=== PATIENT | male | born 1975 | race African-American/Black ===

== ENCOUNTER 2024-02-14 10:47 | Inpatient (IN) ==
--- NOTE | 2024-02-14 10:55 | Emergency Department Note ---
Impression & Plan Shortness of breath, Acute hypoxemic respiratory failure, Rhinovirus infection, Pulmonary embolism, Hypertension ED Provider Note HISTORY OF PRESENT ILLNESS: Patient is a 48-year-old male presenting with shortness of breath and cough. Patient was sent by pulmonary clinic for further workup for pulmonary embolism. Patient has had a chronic cough for the last month. He reportedly was hypoxic with ambulation at pulmonary clinic and Dr. Contreras referred the patient to the emergency department for a perfusion scan, CT scan without contrast of his chest and echocardiogram. Patient reports he has had a nonproductive cough for the last month. He states that sometimes he coughs so hard that he vomits. Denies any fevers. Denies any DVT or PE history. Denies any history of cardiac stents. He is not on any anticoagulation. He states a history of hypertension and did not take his medication this morning. He denies any abdominal pain, nausea or vomiting outside of his posttussive emesis. He denies any chest pain. He reports feeling short of breath intermittently with exertion, but was not complaining of any shortness of breath with his hypoxic episode at the pulmonary clinic. ROS: as above PHYSICAL EXAM: Constitutional: Patient appears in no acute distress. Morbidly obese HENT: Head: Normocephalic and atraumatic. Eyes: EOMI, PERRL Mouth/Throat: Mucous membranes moist. Neck: Trachea midline. Neck supple. Cardiovascular: RRR, No murmurs, rubs or gallops. Intact distal pulses. Pulmonary/Chest: No respiratory distress. Breath sounds clear and equal bilaterally. No wheezes or rales. Abdominal: Abdomen soft, no tenderness, rebound or guarding. Musculoskeletal: No edema, tenderness or deformity noted. Skin: Warm and dry. No rash, erythema, pallor or cyanosis Psychiatric: Appropriate mood and affect for situation. Neurological: Alert and keenly responsive. CN II-XII grossly intact, moving all extremities equally and fully. MDM: - Vitals signs showed hypertension - History obtained via patient. History as above. - Chronic conditions affecting care: DM-2; CKD stage 4; HLD; HTN - Differential diagnoses include, but are not limited to: Congestive heart failure; acute coronary syndrome; COPD/asthma exacerbation; pulmonary edema; pulmonary embolism; pneumonia; pneumothorax; viral syndrome - Order placed for continuous cardiac monitoring. At this time, monitor showed rate of 77 bpm with normal sinus rhythm, per my interpretation. - External medical records reviewed. Pulmonary visit note dated today was reviewed. Patient not had oxygen saturations of 84% with ambulation and 1 L oxygen was applied. Patient's saturations remained hypoxic at 88% or above at rest on the 1 L. - EKG interpreted by myself showed normal sinus rhythm. Rate 65 bpm. QT 374. No acute ischemic changes. - Laboratory workup interpreted by myself showed leukopenia (WBC 3.98); anemia (Hgb 9.1); normal PT/INR; stable electrolytes; CKD (Cr 4.29); normal troponin; elevated BNP (132) - Bilarteral lower extremity US negative for DVT - Viral respiratory panel positive for rhinovirus/enterovirus infection - CT chest wo contrast showed mild diffuse bronchial wall thickening concerning for reactive airway disease or bronchitis. - VBG showed acidosis (pH 7.29) - Patient's saturations did decrease to 86% and he was started on 3 L nasal cannula. - Unfortunately, patient has significant CKD and cannot obtain a CT PE study. Nuclear medicine pulmonary perfusion study was ordered to assess for PE. Study did show intermediate to high probability for PE. - Heparin bolus and drip initiated. - Patient given 10 mg IV hydralazine for blood pressure control. - Discussion was had with trimming caser about patient's case and need for admission - Hospitalist, Dr. Agudelo, consulted for admission - Patient admitted to [facility] service for further evaluation and management. I have personally spent 42 minutes of critical care time in the direct management of this patient. This includes bedside care, interpretation of diagnostic studies, and testing, discussion with consultants, patient, and family members, and other required patient management activities. This 42 minutes is in excess of all separately billable procedures. 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 Ruvalcaba Hyperkalemia Resistant hypertension Diabetes type 2, controlled (Chronic) Surgical History History of arthroscopy of right shoulder Hx of wisdom tooth extraction Family History Mother Breast cancer Grandmother (Maternal) Diabetes Social History Smoking Status: Never smoker Second Hand Exposure: No; Do You Dip or Chew Tobacco: No; Hx Alcohol Use: Yes Alcohol type: hard liquor Hx Substance Use: No Preferred Language: Amharic Communication Ability: Effective Postie Required: No Beliefs That Will Affect Care: None marital status: Current Living Situation: Spouse current occupational status: employed Feels Safe at Home: Yes Assistive Devices: Glasses Allergies Allergies Allergy/AdvReac Type Severity Reaction Status Date / Time Penicillins Allergy Unknown Unknown Verified 02/14/24 14:07 Home Meds Home Medications Medication Instructions Recorded Confirmed carvedilol 25 mg tablet 25 mg PO BID 08/22/23 02/14/24 insulin degludec 100 unit/mL (3 40 unit subcut QPM 08/22/23 02/14/24 mL) subcutaneous pen (Tresiba FlexTouch U-100 insulin) albuterol sulfate 90 mcg/actuation 2 puff inhalation Q6H PRN Wheezing 02/14/24 02/14/24 aerosol inhaler aspirin 81 mg tablet,delayed 81 mg PO DAILY PRN Headache 02/14/24 02/14/24 release calcitriol 0.5 mcg capsule 0.5 mcg PO 3XWK 02/14/24 02/14/24 furosemide 40 mg tablet (Lasix) 80 mg PO QAM 02/14/24 02/14/24 insulin aspart U-100 100 unit/mL 50 unit subcut TIDWMEAL 02/14/24 02/14/24 (3 mL) subcutaneous pen (Novolog FlexPen U-100 Insulin aspart) sildenafil 50 mg tablet 50 mg PO DAILY PRN Erectile 02/14/24 02/14/24 Dysfunction Previous Rx's Medication Instructions Recorded Dexcom G6 Dishtank Operator (blood-glucose #1 ea 07/14/22 meter,continuous) amlodipine 10 mg tablet 10 mg PO QAM #90 tabs 03/14/23 Dexcom G6 Transmitter #1 ea 06/21/23 (blood-glucose transmitter) Dexcom G6 Sensor (blood-glucose #3 ea 07/25/23 sensor) chlorthalidone 25 mg tablet 25 mg PO DAILY #90 tabs 09/20/23 losartan 100 mg tablet 50 mg (1/2 x 100 mg) PO QAM #90 12/26/23 tabs azithromycin 250 mg tablet See Rx Instructions PO .COMPLEX #6 02/14/24 tabs Results & Data (ED) Vital Signs Vital Signs - 24 hr 02/14/24 10:56 02/14/24 11:45 02/14/24 11:47 Temperature 36.7 C Temperature Source Oral Pulse Rate 68 Pulse Rate [Right Finger] 74 Pulse Rate from SpO2 Sensor Pulse Rhythm [Right Finger] Regular Pulse Strength [Right Finger] Normal Respiratory Rate 20 18 Respiratory Effort / Characteristics Non-Labored Spontaneous Respiratory Depth Normal Normal Blood Pressure 228/109 H Blood Pressure [Right Arm] Blood Pressure Mean 148 Blood Pressure Mean [Right Arm] Blood Pressure Position [Right Arm] Pulse Oximetry 94 88 L 94 Oxygen Delivery Method Room Air Room Air Nasal Cannula Oxygen Flow Rate 2 Sepsis Recent Fever Within 48 Hours No Sepsis New/Unexplained Change in Mental Status N/A Sepsis Action Taken by Nursing No Action Required 02/14/24 12:00 02/14/24 12:45 02/14/24 14:00 Temperature Temperature Source Pulse Rate 62 62 Pulse Rate [Right Finger] 57 L Pulse Rate from SpO2 Sensor 65 Pulse Rhythm [Right Finger] Regular Pulse Strength [Right Finger] Normal Respiratory Rate 18 20 Respiratory Effort / Characteristics Non-Labored Respiratory Depth Normal Blood Pressure 188/113 H Blood Pressure [Right Arm] 188/117 H Blood Pressure Mean 138 Blood Pressure Mean [Right Arm] 140 Blood Pressure Position [Right Arm] Sitting Pulse Oximetry 90 97 Oxygen Delivery Method Room Air Nasal Cannula Oxygen Flow Rate 2 Sepsis Recent Fever Within 48 Hours Sepsis New/Unexplained Change in Mental Status Sepsis Action Taken by Nursing 02/14/24 14:54 Temperature Temperature Source Pulse Rate 77 Pulse Rate [Right Finger] Pulse Rate from SpO2 Sensor Pulse Rhythm [Right Finger] Pulse Strength [Right Finger] Respiratory Rate 22 Respiratory Effort / Characteristics Respiratory Depth Blood Pressure 213/129 H Blood Pressure [Right Arm] Blood Pressure Mean 138 Blood Pressure Mean [Right Arm] Blood Pressure Position [Right Arm] Pulse Oximetry 97 Oxygen Delivery Method Nasal Cannula Oxygen Flow Rate 2 Sepsis Recent Fever Within 48 Hours Sepsis New/Unexplained Change in Mental Status Sepsis Action Taken by Nursing Laboratory Data 02/14/24 11:36 02/14/24 11:36 Lab Results 02/14/24 02/14/24 Range/Units 11:36 12:04 WBC 3.98 L (4.8-10.8) K/ul RBC 3.28 L (4.70-6.10) M/uL Hgb 9.1 L (14.0-18.0) g/dl Hct 30.1 L (42.0-52.0) % MCV 91.8 (80.0-100.0) fL MCH 27.7 (25.0-34.0) pg MCHC 30.2 L (32.0-36.0) g/dL RDW Std Deviation 44.1 (36.4-46.3) fL RDW Coeff of [place] 13.3 (11.5-14.5) % Plt Count 171 (130-400) K/uL MPV 11.1 (9.4-12.4) fL Immature Gran % (Auto) 0.3 % Neut % (Auto) 58.4 % Lymph % (Auto) 15.6 % [place] % (Auto) 14.1 % Eos % (Auto) 11.1 % Baso % (Auto) 0.5 % Neut # (Auto) 2.33 (1.40-6.50) K/uL Lymph # (Auto) 0.62 L (1.20-3.40) K/uL [place] # (Auto) 0.56 (0.11-0.59) K/uL Eos # (Auto) 0.44 (0.00-0.50) K/uL Baso # (Auto) 0.02 (0.00-0.20) K/uL Immature Gran # (Auto) 0.01 (0.01-0.20) K/uL PT 10.7 (9.0-12.0) Seconds INR 1.0 (0.9-1.1) VBG pH 7.29 L (7.36-7.41) VBG pCO2 52 H (38-50) mmHg VBG pO2 20 mmHg VBG HCO3 25 mmol/L VBG O2 Saturation < 60.0 % VBG Base Excess -2.3 mEq/L Sodium 139 (136-145) mmol/L Potassium 4.7 (3.5-5.1) mmol/L Chloride 109 H (98-107) mmol/L Carbon Dioxide 25 (21-32) mmol/L Anion Gap 5 (3-11) BUN 48 H (6-23) mg/dl Creatinine 4.29 H (0.6-1.4) mg/dl Est Cr Clr Drug Dosing 33.2 ml/min Est GFR ( Amer) 17.8 ml/min Est GFR (Non-Af Amer) 15.3 ml/min BUN/Creatinine Ratio 11.2 (10-20) Glucose 157 H (70-99(Fasting)) mg/dl Calcium 9.2 (8.6-10.3) mg/dl Magnesium 1.7 (1.7-2.4) mg/dl Total Bilirubin 0.6 (0.2-1.0) mg/dl AST 17 (13-39) U/L ALT 16 (7-52) U/L Alkaline Phosphatase 40 (34-104) U/L Troponin I High Sens 11.9 (0-20) pg/ml B-Natriuretic Peptide 132 H (0-100) pg/ml Total Protein 7.4 (6.0-8.3) gm/dl Albumin 4.1 (3.4-5.0) gm/dl Globulin 3.3 (2.5-4.0) gm/dl Albumin/Globulin Ratio 1.2 (0.9-2) Adenovirus (PCR) Not Detected (NotDetected) B. pertussis DNA (PCR) Not Detected (NotDetected) B.parapertussis DNA PCR Not Detected (NotDetected) C. pneumoniae DNA (PCR) Not Detected (NotDetected) Coronavirus OC43 (PCR) Not Detected (NotDetected) Coronavirus HKU1 (PCR) Not Detected (NotDetected) Coronavirus 229E (PCR) Not Detected (NotDetected) SARS-CoV-2 (PCR) Not Detected (NotDetected) Coronavirus NL63 (PCR) Not Detected (NotDetected) Human Metapneumovir PCR Not Detected (NotDetected) Influenza Type A (PCR) Not Detected (NotDetected) Influenza Type B (PCR) Not Detected (NotDetected) M. pneumoniae (PCR) Not Detected (NotDetected) Parainfluenza 1 (PCR) Not Detected (NotDetected) Parainfluenza 2 (PCR) Not Detected (NotDetected) Parainfluenza 3 (PCR) Not Detected (NotDetected) Parainfluenza 4 (PCR) Not Detected (NotDetected) RSV (PCR) Not Detected (NotDetected) Entero/Rhino (PCR) DETECTED A (NotDetected) Imaging Data Radiologist's Impression: Chest CT 02/14/24 10:52 CT chest diagnostic wo con CT DOSE: 927.79 mGy.cm HISTORY: cough; shortness of breath; hypoxia TECHNIQUE: Multiaxial CT images of the chest were performed without contrast. A dose lowering technique was utilized adhering to the principles of ALARA. COMPARISON: None. FINDINGS: Mild diffuse bronchial wall thickening. Otherwise, the central airways are patent. No pneumothorax. No pleural effusions. No focal lung consolidations to suggest a pneumonia. No evidence for pulmonary edema. No acute fractures. The visualized thyroid gland is unremarkable. Limited views of the upper abdomen demonstrate a normal liver, spleen, and adrenal glands. Partially visualized left perinephric edema. Normal esophagus. The heart is normal in size. No pericardial effusion. Mild coronary artery calcifications are noted. Normal caliber thoracic aorta. No mediastinal or hilar lymphadenopathy. Decreased attenuation within the blood pool which could represent underlying anemia. IMPRESSION: 1. Mild diffuse bronchial wall thickening. This can be seen in the setting of a reactive airways disease or bronchitis. 2. No focal lung consolidations to suggest a pneumonia. 3. Mild coronary artery calcifications. 4. Decreased attenuation within the blood pool which could represent underlying anemia. Recommend correlation with laboratory values. ACT 112: Negative or not required by law. Electronically signed by: Monty Oswald M.D. 02/14/2024 12:01 PM Chest X-Ray 02/14/24 10:53 XR chest 1V portable HISTORY: Dyspnea COMPARISON: Chest 12/16/2023. FINDINGS: There are low lung volumes. No pneumothorax. No pleural effusions. The correct silhouette is top normal in size. This remains unchanged. The lungs are clear. No acute fractures. IMPRESSION: No significant change compared to the prior study. No acute process. ACT 112: Negative or not required by law. Electronically signed by: Monty Oswald M.D. 02/14/2024 11:48 AM Pulmonary Perfusion Imaging 02/14/24 12:11 NM pul perfusion HISTORY: 48 years-old Male chronic cough; hypoxia acute hypoxia COMPARISON: Duplex venous Doppler chest CT studies of same day TECHNIQUE: Nuclear medicine perfusion study was obtained following the intravenous demonstration of 5.2 mCi technetium 99 MAA administered via the left upper extremity. FINDINGS: Large segmental perfusion defects in the superior segment left lower lobe. Additional moderate sized right and small left upper lobe perfusion defects. IMPRESSION: Intermediate to high probability for pulmonary embolus. ACT 112: Negative or not required by law. The above report was generated using voice recognition software. It may contain grammatical, syntax or spelling errors. Electronically signed by: Martin Mccarthy M.D. 02/14/2024 3:12 PM Venous Doppler Study 02/14/24 12:11 BILATERAL LOWER EXTREMITY VENOUS DOPPLER HISTORY: Acute pain and swelling of the lower legs r/o DVT COMPARISON STUDY: None. FINDINGS: Limited study secondary to patient body habitus. There is normal compressibility, flow, and augmentation within the bilateral lower extremity deep venous systems. Subcutaneous edema. IMPRESSION: No DVT within the right or left lower extremity. ACT 112: Negative or not required by law. Electronically signed by: Martin Mccarthy M.D. 02/14/2024 2:31 PM Discharge Plan Visit Data Chief Complaint: Abnormal Labs/Diagnostic Testing Stated Complaint: REF BY DOC ED Provider: Nury Reeves Discharge Problem: Shortness of breath, Acute hypoxemic respiratory failure, Rhinovirus infection, Pulmonary embolism, Hypertension Forms Stand Alone Forms: My [facility] Prescriptions Prescriptions: No Action amlodipine 10 mg tablet 10 mg PO QAM Qty: 90 3RF (DME) Dexcom G6 Transmitter Device See Rx Instructions .Route Qty: 1 3RF Rx Instructions: change every 90 days (DME) Dexcom G6 Sensor Device See Rx Instructions .Route Qty: 3 11RF Rx Instructions: change every 10 days (DME) Dexcom G6 Dishtank Operator Misc See Rx Instructions .Route Qty: 1 0RF Rx Instructions: use to monitor blood sugars continuous daily chlorthalidone 25 mg tablet 25 mg PO DAILY Qty: 90 3RF carvedilol 25 mg tablet 25 mg PO BID insulin degludec [Tresiba FlexTouch U-100] 100 unit/mL (3 mL) insulin pen 40 unit SQ QPM Retacrit 40,000 unit/mL solution 40,000 unit subcut ONCE Qty: 1 0RF losartan 100 mg tablet 50 mg PO QAM Qty: 90 3RF azithromycin 250 mg tablet See Rx Instructions PO .COMPLEX Qty: 6 0RF Rx Instructions: For 250 mg dose pack: take 500 mg today (day 1), then 250 mg for 4 days (days 2-5) PO. As of 02/14/24, pt hasn't started medication yet. sildenafil 50 mg tablet 50 mg PO DAILY PRN (Reason: Erectile Dysfunction) albuterol sulfate 90 mcg/actuation HFA aerosol inhaler 2 puff INHALATION Q6H PRN (Reason: Wheezing) furosemide [Lasix] 40 mg tablet 80 mg PO QAM calcitriol 0.5 mcg capsule 0.5 mcg PO 3XWK Rx Instructions: Mon/Wed/Fri insulin aspart U-100 [Novolog FlexPen U-100 Insulin] 100 unit/mL (3 mL) insulin pen 50 unit subcut TIDWMEAL Rx Instructions: Inject per sliding scale with meals up to TDD of 50 units aspirin 81 mg Tablet,Delayed Release (Dr/Ec) 81 mg PO DAILY PRN (Reason: Headache) Referrals Referrals: Chris Carroll MD [Primary Care Provider] -
--- NOTE | 2024-02-14 11:49 | XRay Report ---
XR chest 1V portable HISTORY: Dyspnea COMPARISON: Chest 12/16/2023. FINDINGS: There are low lung volumes. No pneumothorax. No pleural effusions. The correct silhouette i s top normal in size. This remains unchanged. The lungs are clear. No acute fractures. IMPRESSION: No significant change compared to the prior study. No acute process. ACT 112: Negative or not required by law. Electronically signed by: Monty Oswald M.D. 02/14/2024 11:48 AM
[2024-02-14 11:54] LABS: Basophils # (auto) 0.02 K/uL (0.00-0.20); Basophils % (auto) 0.5 %; Eosinophils # (auto) 0.44 K/uL (0.00-0.50); Eosinophils % (auto) 11.1 %; Hematocrit (blood only) 30.1 % (42.0-52.0); Hemoglobin 9.1 g/dl (14.0-18.0); Immature Granulocytes # (auto) 0.01 K/uL (0.01-0.20); Immature Granulocytes % (auto) 0.3 %; Lymphocytes # (auto) 0.62 K/uL (1.20-3.40); Lymphocytes % (auto) 15.6 %; Mean Corpuscular Hemoglobin 27.7 pg (25.0-34.0); Mean Corpuscular Hgb Conc 30.2 g/dL (32.0-36.0); Mean Corpuscular Volume 91.8 fL (80.0-100.0); Mean Platelet Volume 11.1 fL (9.4-12.4); Monocytes # (auto) 0.56 K/uL (0.11-0.59); Monocytes % (auto) 14.1 %; Neutrophils # (auto) 2.33 K/uL (1.40-6.50); Neutrophils % (auto) 58.4 %; Platelet Count 171 K/uL (130-400); RDW Coefficient of Variation 13.3 % (11.5-14.5); RDW Standard Deviation 44.1 fL (36.4-46.3); Red Blood Count 3.28 M/uL (4.70-6.10); White Blood Count 3.98 K/ul (4.8-10.8)
--- NOTE | 2024-02-14 12:02 | CT Scan Report ---
CT chest diagnostic wo con CT DOSE: 927.79 mGy.cm HISTORY: cough; shortness of breath; hypoxia TECHNIQUE: Multiaxial CT images of the chest were performed without contrast. A dose lowering techni que was utilized adhering to the principles of ALARA. COMPARISON: None. FINDINGS: Mild diffuse bronchial wall thickening. Otherwise, the central airways are patent. No pneum othorax. No pleural effusions. No focal lung consolidations to suggest a pneumonia. No evidence for p ulmonary edema. No acute fractures. The visualized thyroid gland is unremarkable. Limited views of th e upper abdomen demonstrate a normal liver, spleen, and adrenal glands. Partially visualized left per inephric edema. Normal esophagus. The heart is normal in size. No pericardial effusion. Mild coronary artery calcifications are noted. Normal caliber thoracic aorta. No mediastinal or hilar lymphadenopa thy. Decreased attenuation within the blood pool which could represent underlying anemia. IMPRESSION: 1. Mild diffuse bronchial wall thickening. This can be seen in the setting of a reactive airways dise ase or bronchitis. 2. No focal lung consolidations to suggest a pneumonia. 3. Mild coronary artery calcifications. 4. Decreased attenuation within the blood pool which could represent underlying anemia. Recommend cor relation with laboratory values. ACT 112: Negative or not required by law. Electronically signed by: Monty Oswald M.D. 02/14/2024 12:01 PM
[2024-02-14 12:11] LABS: Albumin Globulin Ratio 1.2 (0.9-2); Albumin Level 4.1 gm/dl (3.4-5.0); BUN Creatinine Ratio 11.2 (10-20); Bilirubin,Total 0.6 mg/dl (0.2-1.0); Calcium 9.2 mg/dl (8.6-10.3); Creatinine Clr Calc Pharmacy 33.2 ml/min; Est GFR (African American) 17.8 ml/min; Est GFR (Non-African American) 15.3 ml/min; Globulin 3.3 gm/dl (2.5-4.0); Magnesium 1.7 mg/dl (1.7-2.4); Potassium 4.7 mmol/L (3.5-5.1); Total Protein 7.4 gm/dl (6.0-8.3)
[2024-02-14 12:11] LABS: Base Excess VBG -2.3 mEq/L; HCO3 VBG 25 mmol/L; Oxygen Saturation VBG < 60.0 %; PCO2 VBG 52 mmHg (38-50); PO2 VBG 20 mmHg; pH VBG 7.29 (7.36-7.41)
[2024-02-14 12:17] LABS: Troponin I High Sensitivity 11.9 pg/ml (0-20)
[2024-02-14 12:18] LABS: Prothrombin Time 10.7 Seconds (9.0-12.0)
[2024-02-14 12:38] LABS: Adenovirus PCR Not Detected (NotDetected); Bordetella parapertussis PCR Not Detected (NotDetected); Bordetella pertussis PCR Not Detected (NotDetected); Chlamydia pneumoniae PCR Not Detected (NotDetected); Coronavirus 229E PCR Not Detected (NotDetected); Coronavirus CoV-2 (COVID19)PCR Not Detected (NotDetected); Coronavirus HKU1 PCR Not Detected (NotDetected); Coronavirus NL63 PCR Not Detected (NotDetected); Coronavirus OC43PCR Not Detected (NotDetected); Human Metapneumovirus PCR Not Detected (NotDetected); Influenza A PCR Not Detected (NotDetected); Influenza B PCR Not Detected (NotDetected); Mycoplasma pneumoniae PCR Not Detected (NotDetected); Parainfluenza Virus 1 PCR Not Detected (NotDetected); Parainfluenza Virus 2 PCR Not Detected (NotDetected); Parainfluenza Virus 3 PCR Not Detected (NotDetected); Parainfluenza Virus 4 PCR Not Detected (NotDetected); Respiratory Syncytial VirusPCR Not Detected (NotDetected); Rhinovirus/Enterovirus PCR DETECTED (NotDetected)
--- NOTE | 2024-02-14 14:32 | Ultrasound Report ---
BILATERAL LOWER EXTREMITY VENOUS DOPPLER HISTORY: Acute pain and swelling of the lower legs r/o DVT COMPARISON STUDY: None. FINDINGS: Limited study secondary to patient body habitus. There is normal compressibility, flow, and augmentation within the bilateral lower extremity deep venous systems. Subcutaneous edema. IMPRESSION: No DVT within the right or left lower extremity. ACT 112: Negative or not required by law. Electronically signed by: Martin Mccarthy M.D. 02/14/2024 2:31 PM
--- NOTE | 2024-02-14 15:14 | Nuclear Medicine Report ---
NM pul perfusion HISTORY: 48 years-old Male chronic cough; hypoxia acute hypoxia COMPARISON: Duplex venous Doppler chest CT studies of same day TECHNIQUE: Nuclear medicine perfusion study was obtained following the intravenous demonstration of 5 .2 mCi technetium 99 MAA administered via the left upper extremity. FINDINGS: Large segmental perfusion defects in the superior segment left lower lobe. Additional moderate sized right and small left upper lobe perfusion defects. IMPRESSION: Intermediate to high probability for pulmonary embolus. ACT 112: Negative or not required by law. The above report was generated using voice recognition software. It may contain grammatical, syntax o r spelling errors. Electronically signed by: Martin Mccarthy M.D. 02/14/2024 3:12 PM
[2024-02-14] MEDS ORDERED: HEPARIN SOD (PORCINE) 1000 UNIT/ML IV ONE (15:31)
[2024-02-14] MEDS: hydrALAZINE HCL 20 MG/ML VIAL IV STA (15:38)
--- NOTE | 2024-02-14 15:52 | History & Physical Report ---
Date of Service February 14, 2024 Assessment & Plan (1) Pulmonary embolism: Plan: Patient sent in by pulmonology on 02/13 after he desaturated while walking to 84% on RA Ongoing cough and intermittent wheezing x 2 months Unable to obtain chest CTA on arrival due to patient's creatinine level Nuclear study for pulmonary perfusion imaging revealed intermediate to high probability for pulmonary embolism in the left lower lobe Heparin IV with bolus started in the ED; platelet count okay at 171 A.m. CBC, BMP, magnesium, PTT (2) Rhinovirus infection: Plan: Rhino/enterovirus (+) on arrival Likely contributing to hypoxia, but not the main cause of it Supportive care Droplet precautions Acetaminophen as needed for pain/fever (3) Acute hypoxemic respiratory failure: Plan: Reported to be 84% on RA with walking prior to arrival; 88% on RA while sitting in the ED Patient is not on supplemental oxygen at baseline Titrate supplemental oxygen to maintain SpO2 >94% Continuous pulse oximetry (4) Stage 5 chronic kidney disease due to type 2 diabetes mellitus: Plan: Creatinine 4.29 on arrival (unclear baseline) Patient follows with [facility] outpatient; not currently on dialysis Recently referred for AV fistula and dialysis modality education session Avoid nephrotoxic agents Avoid NSAIDs Heart healthy, low-salt diet (5) Resistant hypertension: Plan: Patient reports that he did not take his antihypertensives since Sunday 02/11 due [place] airport He reports good compliance with taking his antihypertensives regularly besides these two days Discussed with Dr. Agudelo, and will plan to restart antihypertensives the evening of 02/13 Continue carvedilol, amlodipine, losartan, chlorthalidone, and Lasix as scheduled (6) Anemia of chronic disease: Plan: Chronic; Hgb 9.1 on arrival; likely secondary to kidney function No signs of active bleeding on physical exam on arrival Continue to monitor CBC (7) Type 2 diabetes mellitus: Plan: Last A1c at 5.9% on 08/26/2022 Patient is normally on insulin 40u QPM, but reports he did not take the evening prior to coming in to the hospital Will dose reduce to Lantus 15u BID while inpatient SSI; with target BSG range 110-140mg/dL, CF 20, carb ratio 10 T2DM diet BSG ACHS Adjust regimen as needed AM A1c (8) Asthma: Plan: Patient was prescribed Airsupra (albuterol/budesonide) at his pulmonology appointment on 02/13; non-formulary Per pulm note, spirometry is non-specific, but restrictive; no PFTs Will start on budesonide 1 puff (90mcg/actuation) BID to cover for asthma Albuterol inhaler as needed for wheezing Plan Disposition: Admit to PCU telemetry Full code T2DM, heart healthy, low-salt diet VTE PPx: Heparin IV History of Present Illness Chief Complaint: SOB/dyspnea Primary Care Provider: Chris Carroll MD Jose L is a 48-year-old male with PMH of T2DM, resistant hypertension, CKD stage V secondary to T2DM, and proliferative diabetic retinopathy. He was sent in by pulmonology on 02/13 to rule out blood clot. Patient initially presented to pulmonology for an ongoing nonproductive cough and intermittent wheezing x 2 months. He denies any SOB at rest or with exertion. SOB is not present when he lies flat on his back. Patient reports this nonproductive cough has been intermittent x 2 months and initially went away, but then came back. He recently finished a steroid taper, and has been using his albuterol inhaler as needed for the wheezing, which he reports helps. Patient does not use 7 oxygen at baseline. No CPAP at night. He denies past medical history of DVT/PE. No family history of DVT/PE to his knowledge. No PMH of bleeding disorders, bleeding issues, or GI bleeds. He has never been on a blood thinner before. Patient did not take his regular morning medications today; no recent change in medications. He reports he last took his medicine on Tuesday. He did not take his insulin last night. Patient follows with Dr. Kitchen for nephrology. He denies history of dialysis for his renal function. He reports he is still producing urine. He denies any recent injuries to the chest wall, abdomen, or legs. Patient denies smoking, tobacco use, recent alcohol use within the past week. Patient is hypertensive at 192/111 at time of admission; SpO2 98% on 2L NC. ED course: Heparin IV with bolus Hydralazine 10 mg IV ROS: Patient endorses productive cough x 2 months, intermittent wheezing. Patient denies fever, chills, night-sweats, dizziness, lightheadedness, PATRICIA, chest pressure, chest pain, SOB at rest or with exertion, hemoptysis, pleuritic CP, abdominal pain, N/V/D, changes in urinary/bowel habits, decreased urinary production, redness/swelling in the legs, or numbness/tingling in the arms or legs. Allergies Allergy/AdvReac Type Severity Reaction Status Date / Time Penicillins Allergy Unknown Unknown Verified 02/14/24 14:07 Home Medications Medication Instructions Recorded Confirmed Type Dexcom G6 Displayer Merchandise (blood-glucose #1 ea 07/14/22 02/08/24 Rx meter,continuous) amlodipine 10 mg tablet 10 mg PO QAM #90 tabs 03/14/23 02/14/24 Rx Dexcom G6 Transmitter #1 ea 06/21/23 02/08/24 Rx (blood-glucose transmitter) Dexcom G6 Sensor (blood-glucose #3 ea 07/25/23 02/08/24 Rx sensor) carvedilol 25 mg tablet 25 mg PO BID 08/22/23 02/14/24 History insulin degludec 100 unit/mL (3 40 unit subcut QPM 08/22/23 02/14/24 History mL) subcutaneous pen (Tresiba FlexTouch U-100 insulin) chlorthalidone 25 mg tablet 25 mg PO DAILY #90 tabs 09/20/23 02/14/24 Rx losartan 100 mg tablet 50 mg (1/2 x 100 mg) PO QAM #90 12/26/23 02/14/24 Rx tabs albuterol sulfate 90 mcg/actuation 2 puff inhalation Q6H PRN Wheezing 02/14/24 02/14/24 History aerosol inhaler aspirin 81 mg tablet,delayed 81 mg PO DAILY PRN Headache 02/14/24 02/14/24 History release azithromycin 250 mg tablet See Rx Instructions PO .COMPLEX #6 02/14/24 02/14/24 Rx tabs calcitriol 0.5 mcg capsule 0.5 mcg PO 3XWK 02/14/24 02/14/24 History furosemide 40 mg tablet (Lasix) 80 mg PO QAM 02/14/24 02/14/24 History insulin aspart U-100 100 unit/mL 50 unit subcut TIDWMEAL 02/14/24 02/14/24 History (3 mL) subcutaneous pen (Novolog FlexPen U-100 Insulin aspart) sildenafil 50 mg tablet 50 mg PO DAILY PRN Erectile 02/14/24 02/14/24 History Dysfunction Past Med/Surg History Problem List (Updated 02/14/24 @ 20:09 by Monty Crow PA-C) Asthma Type 2 diabetes mellitus Anemia of chronic disease Hypertension (Acute) Pulmonary embolism (Acute) Rhinovirus infection (Acute) Acute hypoxemic respiratory failure (Acute) Shortness of breath (Acute) Hypoxia Hypersomnolence URI (upper respiratory infection) Stage 5 chronic kidney disease due to type 2 diabetes mellitus Class 3 obesity Vitamin D deficiency (Chronic) Dyslipidemia (Chronic) Proliferative diabetic retinopathy associated with type 2 diabetes mellitus (Chronic) Diabetic nephropathy associated with type 2 diabetes mellitus (Chronic) Morbid obesity Anemia due to chronic kidney disease Nephrotic syndrome Chronic kidney disease, stage 4 (severe) Follows Dr. Ruvalcaba Hyperkalemia Resistant hypertension Diabetes type 2, controlled (Chronic) Surgical History History of arthroscopy of right shoulder Hx of wisdom tooth extraction Family History Mother Breast cancer Grandmother (Maternal) Diabetes Social History Smoking Status: Never smoker Second Hand Exposure: No; Do You Dip or Chew Tobacco: No; Hx Alcohol Use: Yes Alcohol type: hard liquor Hx Substance Use: No Preferred Language: Portuguese Communication Ability: Effective Edger Tailer Required: No Beliefs That Will Affect Care: None marital status: Current Living Situation: Spouse current occupational status: employed Feels Safe at Home: Yes Assistive Devices: Glasses Review of Systems Review of Systems: See HPI above Physical Exam Physical Exam: General: no acute distress; pleasant affect; anxious; non-toxic appearing; cooperative; SpO2 98% on 2L NC HEENT: normocephalic, atraumatic; no scleral icterus; PERRLA; vision and hearing grossly intact Neck: supple; no lymphadenopathy; trachea midline Skin: warm, dry without signs of tenting; no cyanosis; no rashes, bruising, lesions, or erythema noted CV: chest wall NTP; RRR; S1/S2 normal; no murmurs/rubs/gallops; pulses intact and symmetric at radial, DP, and PT Lungs: no acute respiratory distress; symmetrical chest wall expansion; clear breath sounds across all lung holguin w/o adventitious sounds; no wheezing ABD: Soft, NTP; BS present; no rebound/guarding; moderate distention secondary to patient's body habitus; suboptimal exam MSK: no tics or fasciculations; no edema noted in the LEs b/l, nonerythematous Neuro: A&Ox3; normal mood and affect; fluent speech; no focal deficits; sensation grossly intact in the LEs b/l Results & Data Results & Data Vital Signs (Past 12 Hours) Vital Signs Temp Pulse Pulse Resp BP BP Pulse Ox 02/14/24 15:30 60 20 192/111 H 97 02/14/24 14:54 77 22 213/129 H 97 02/14/24 14:00 62 20 188/113 H 97 02/14/24 12:45 62 02/14/24 12:00 57 L 18 188/117 H 90 02/14/24 11:47 94 02/14/24 11:45 74 18 88 L 02/14/24 10:56 36.7 C 68 20 228/109 H 94 O2 Del Method O2 Flow Rate 02/14/24 15:30 Nasal Cannula 2 02/14/24 14:54 Nasal Cannula 2 02/14/24 14:00 Nasal Cannula 2 02/14/24 12:45 02/14/24 12:00 Room Air 02/14/24 11:47 Nasal Cannula 2 02/14/24 11:45 Room Air 02/14/24 10:56 Room Air Laboratory Results Abnormal lab results 02/14/24 02/14/24 Range/Units 11:36 12:04 WBC 3.98 L (4.8-10.8) K/ul RBC 3.28 L (4.70-6.10) M/uL Hgb 9.1 L (14.0-18.0) g/dl Hct 30.1 L (42.0-52.0) % MCHC 30.2 L (32.0-36.0) g/dL Lymph # (Auto) 0.62 L (1.20-3.40) K/uL VBG pH 7.29 L (7.36-7.41) VBG pCO2 52 H (38-50) mmHg Chloride 109 H (98-107) mmol/L BUN 48 H (6-23) mg/dl Creatinine 4.29 H (0.6-1.4) mg/dl Glucose 157 H (70-99(Fasting)) mg/dl B-Natriuretic Peptide 132 H (0-100) pg/ml Entero/Rhino (PCR) DETECTED A (NotDetected) Diagnostic Findings Chest CT 02/14/24 10:52 CT chest diagnostic wo con CT DOSE: 927.79 mGy.cm HISTORY: cough; shortness of breath; hypoxia TECHNIQUE: Multiaxial CT images of the chest were performed without contrast. A dose lowering technique was utilized adhering to the principles of ALARA. COMPARISON: None. FINDINGS: Mild diffuse bronchial wall thickening. Otherwise, the central airways are patent. No pneumothorax. No pleural effusions. No focal lung consolidations to suggest a pneumonia. No evidence for pulmonary edema. No acute fractures. The visualized thyroid gland is unremarkable. Limited views of the upper abdomen demonstrate a normal liver, spleen, and adrenal glands. Partially visualized left perinephric edema. Normal esophagus. The heart is normal in size. No pericardial effusion. Mild coronary artery calcifications are noted. Normal caliber thoracic aorta. No mediastinal or hilar lymphadenopathy. Decreased attenuation within the blood pool which could represent underlying anemia. IMPRESSION: 1. Mild diffuse bronchial wall thickening. This can be seen in the setting of a reactive airways disease or bronchitis. 2. No focal lung consolidations to suggest a pneumonia. 3. Mild coronary artery calcifications. 4. Decreased attenuation within the blood pool which could represent underlying anemia. Recommend correlation with laboratory values. ACT 112: Negative or not required by law. Electronically signed by: Monty Oswald M.D. 02/14/2024 12:01 PM Chest X-Ray 02/14/24 10:53 XR chest 1V portable HISTORY: Dyspnea COMPARISON: Chest 12/16/2023. FINDINGS: There are low lung volumes. No pneumothorax. No pleural effusions. The correct silhouette is top normal in size. This remains unchanged. The lungs are clear. No acute fractures. IMPRESSION: No significant change compared to the prior study. No acute process. ACT 112: Negative or not required by law. Electronically signed by: Monty Oswald M.D. 02/14/2024 11:48 AM Pulmonary Perfusion Imaging 02/14/24 12:11 NM pul perfusion HISTORY: 48 years-old Male chronic cough; hypoxia acute hypoxia COMPARISON: Duplex venous Doppler chest CT studies of same day TECHNIQUE: Nuclear medicine perfusion study was obtained following the intravenous demonstration of 5.2 mCi technetium 99 MAA administered via the left upper extremity. FINDINGS: Large segmental perfusion defects in the superior segment left lower lobe. Additional moderate sized right and small left upper lobe perfusion defects. IMPRESSION: Intermediate to high probability for pulmonary embolus. ACT 112: Negative or not required by law. The above report was generated using voice recognition software. It may contain grammatical, syntax or spelling errors. Electronically signed by: Martin Mccarthy M.D. 02/14/2024 3:12 PM Venous Doppler Study 02/14/24 12:11 BILATERAL LOWER EXTREMITY VENOUS DOPPLER HISTORY: Acute pain and swelling of the lower legs r/o DVT COMPARISON STUDY: None. FINDINGS: Limited study secondary to patient body habitus. There is normal com pressibility, flow, and augmentation within the bilateral lower extremity deep venous systems. Subcutaneous edema. IMPRESSION: No DVT within the right or left lower extremity. ACT 112: Negative or not required by law. Electronically signed by: Martin Mccarthy M.D. 02/14/2024 2:31 PM ECG Additional Comments: ECG revealed sinus rhythm with PACs at 65 bpm; QTc 388 Code Status & VTE Plan Code Status Full code VTE Prophylaxis Plan VTE Prophylaxis will be ordered: Yes PG Care Time/CCT Total # of Minutes Spent Total Time Spent with Patient: Total time spent is greater than 50% in coordination of care (as documented) at patient's floor/unit and/or counseling patient: Coding [place] [address] INT INP/OBS CARE 3/75MIN Patient Type Established History Comprehensive Exam Comprehensive Medical Decision Making High Complexity Diagnoses Pulmonary embolism I26.99 Rhinovirus infection B34.8 Acute hypoxemic respiratory failure J96.01 Stage 5 chronic kidney disease due to type 2 diabetes mellitus E11.22; N18.5 Resistant hypertension I10 Anemia of chronic disease D63.8 Type 2 diabetes mellitus E11.9 Asthma J45.909
[2024-02-14] MEDS: HEPARIN SOD (PORCINE) 1000 UNIT/ML IV ONE (16:28)
[2024-02-14] MEDS: HEPARIN SODIUM/DEXTROSE 25,000 UNITS/500 ML BAG IV SCH (16:29)
[2024-02-14] MEDS: Heparin IV Adult Wt-Based Standard w/ INITIAL Bolus Protocol IV STA (16:30)
[2024-02-14 17:29] LABS: Partial Thromboplastin Time 28 Seconds (21-31)
[2024-02-14] MEDS ORDERED: CARBOHYDRATES FOR HYPOGLYCEMIA PO PRN (18:27)
[2024-02-14] MEDS ORDERED: GLUCOSE 40% GEL 15 GM TUBE PO PRN (18:27)
[2024-02-14] MEDS ORDERED: DEXTROSE 50% 50 ML SYRINGE IV PRN (18:27)
[2024-02-14] MEDS ORDERED: ALBUTEROL HFA 8 GM INHALER INH PRN (18:27)
[2024-02-14] MEDS ORDERED: GLUCOSE 10 TAB/TUBE PO PRN (18:27)
[2024-02-14] MEDS ORDERED: GLUCAGON FOR INJ 1 MG VIAL SQ PRN (18:27)
[2024-02-14 19:11] LABS: Appearance Urine Clear (Clear); Bacteria Urine Automated None Seen (None Seen); Bilirubin Urine Negative (Negative); Blood Urine 1+ (Negative); Cast Urine Automated 0-2 /lpf (0-2); Color Urine Yellow; Epithelial Cell Urine Auto 0-2 /hpf (0-2); Glucose Urine UA Negative (Negative); Ketones Urine Negative (Negative); Leukocyte Esterase Urine Negative (Negative); Nitrite Urine Negative (Negative); Protein Urine 2+ (Negative); RBC Urine Automated 0-2 /hpf (0-2); Specific Gravity Urine 1.011 (1.000-1.030); Urobilinogen Urine Negative (Negative); WBC Urine Automated 0-5 /hpf (0-5)
[2024-02-14] MEDS: amLODIPine BESYLATE 5 MG TAB PO ONE (20:20)
[2024-02-14] MEDS: FUROSEMIDE 80 MG TAB PO STA (20:21)
[2024-02-14] MEDS: carvediloL 25 MG TAB PO STA (20:21)
[2024-02-14] MEDS: CHLORTHALIDONE 25 MG TAB PO STA (20:21)
[2024-02-14] MEDS: LOSARTAN POTASSIUM 50 MG TAB PO STA (20:22)
[2024-02-14] MEDS: INSULIN ASPART PER UNIT CHARGE SC SCH (20:32)
[2024-02-14] MEDS: LANTUS PER UNIT CHARGE SQ SCH (21:18)
[2024-02-14 23:41] LABS: ANTI-Xa, UFH(UnfractionatedHep 0.49 IU/ml (0.3-0.7)
[2024-02-15] MEDS: ACETAMINOPHEN 325 MG TAB PO PRN (06:06)
[2024-02-15 07:55] LABS: Basophils # (auto) 0.02 K/uL (0.00-0.20); Basophils % (auto) 0.5 %; Eosinophils # (auto) 0.44 K/uL (0.00-0.50); Eosinophils % (auto) 11.2 %; Hematocrit (blood only) 28.5 % (42.0-52.0); Hemoglobin 8.8 g/dl (14.0-18.0); Immature Granulocytes # (auto) 0.01 K/uL (0.01-0.20); Immature Granulocytes % (auto) 0.3 %; Lymphocytes # (auto) 0.92 K/uL (1.20-3.40); Lymphocytes % (auto) 23.5 %; Mean Corpuscular Hemoglobin 27.8 pg (25.0-34.0); Mean Corpuscular Hgb Conc 30.9 g/dL (32.0-36.0); Mean Corpuscular Volume 89.9 fL (80.0-100.0); Mean Platelet Volume 11.7 fL (9.4-12.4); Monocytes # (auto) 0.52 K/uL (0.11-0.59); Monocytes % (auto) 13.3 %; Neutrophils # (auto) 2.01 K/uL (1.40-6.50); Neutrophils % (auto) 51.2 %; Platelet Count 163 K/uL (130-400); RDW Coefficient of Variation 13.3 % (11.5-14.5); RDW Standard Deviation 43.7 fL (36.4-46.3); Red Blood Count 3.17 M/uL (4.70-6.10); White Blood Count 3.92 K/ul (4.8-10.8)
[2024-02-15 08:18] LABS: ANTI-Xa, UFH(UnfractionatedHep 0.45 IU/ml (0.3-0.7)
[2024-02-15] MEDS: FUROSEMIDE 80 MG TAB PO SCH (08:21)
[2024-02-15] MEDS: CHLORTHALIDONE 25 MG TAB PO SCH (08:21)
[2024-02-15] MEDS: amLODIPine BESYLATE 5 MG TAB PO SCH (08:22)
[2024-02-15] MEDS: FLUTICASONE FUROATE 100MCG 14 PUFFS/INHALER INH SCH (08:22)
[2024-02-15 08:28] LABS: BUN Creatinine Ratio 11.4 (10-20); Calcium 8.5 mg/dl (8.6-10.3); Creatinine Clr Calc Pharmacy 43.7 ml/min; Est GFR (African American) 21.3 ml/min; Est GFR (Non-African American) 18.4 ml/min; Magnesium 1.5 mg/dl (1.7-2.4); Potassium 4.5 mmol/L (3.5-5.1)
--- NOTE | 2024-02-15 08:47 | Pulmonology Progress Note ---
Date of Service February 15, 2024 Assessment & Plan (1) Pulmonary embolism: (2) Hypoxia: (3) Rhinovirus infection: (4) Hypersomnolence: (5) Morbid obesity: (6) Hypertension: Plan IMPRESSION: 48-year-old male with significant past medical history of CKD 5, resistant hypertension, type 2 diabetes, morbid obesity, and ongoing symptoms of wheezing who had presented to the outpatient pulmonary clinic yesterday with concerns for ongoing wheezing and cough. He was found to be hypoxic during 6- minute walk test and was referred to the emergency department for further evaluation and management. RECOMMENDATIONS: 1. Pulmonary embolism - Troponin not elevated. BNP slightly elevated. Will await results of echocardiogram to assess for any significant strain, however given cardiac biomarkers, I am less concerned that this represents significant strain effect. Continue with heparin for now with goal for early transition to an oral therapy. Recommend lifelong anticoagulation in this unprovoked event. Patient also does have significant travel for his job making reoccurrence likely. Recommend pharmacy/anticoagulation recommendation for recommendation of anticoagulation therapy given the patient's chronic kidney disease. 2. Hypoxia - Multifactorial in the morbidly obese 48-year-old male with restrictive lung physiology, rhinovirus infection, findings of airway inflammation on outpatient NIOX, and thromboembolic disease. Titrate supplemental oxygen as able. Certainly very well may require supplemental oxygen for home at the time of discharge. 3. Infection - Conservative, symptomatic management as you are. Certainly could be contributing to his degree of cough and wheezing. Patient does have MI/ICS inhaler at home that he can use in the interim pending his ongoing evaluation for reactive airway disease. 4. Hypersomnolence - As discussed with the patient. Outpatient polysomnography ordered. Will be reviewed during follow-up pulmonary visit. 5. Morbid obesity - Patient would benefit greatly from significant weight reduction and increasing physical activity. 6. Resistant hypertension - From a pulmonary perspective, continue with workup for possible sleep apnea. Thank you for allowing us to participate in the care of this pleasant patient. Pulmonary medicine will sign off at this time. Patient will see our service in the outpatient setting. Please feel free to reach out to us for any further questions/concerns. Admission and Anticipated Discharge Date Admission Date: February 14, 2024 Supervising Physician Co-Signing Physician Notes Discussed with TOMÁS. Agree with assessment plan as noted. The patient needs anticoagulation which can be arranged as an outpatient. Management of his other medical issues per primary admitting service. He can follow-up in the pulmonary clinic. Agree with plans for outpatient polysomnography. Will need assessment for supplemental oxygen prior to discharge. Feel free to contact us with additional questions or concerns. Subjective Patient seen and evaluated at bedside today. Patient had been seen in the outpatient by pulmonary colleague yesterday. He was admitted in the setting of persistent hypoxia with findings on VQ scan concerning of likely pulmonary embolism. Echocardiogram pending at this time. Upon evaluation in room 218 this morning, the patient is awake, alert, and oriented. He is adamant that he has not had symptoms of dyspnea and that his main symptoms were cough and wheezing. He reports no change in symptoms today. Specifically, he offers no complaints of chest pain, palpitations, dizziness, lightheadedness, hemoptysis, or presyncope. Review of Systems Review of Systems: A complete 10 point review of systems was reviewed with the patient with pertinent positives and negatives as per history of present illness. All else were negative. Physical Exam Physical Exam: VITAL SIGNS - Vital signs and nursing notes were reviewed. GENERAL - 48-year-old male appearing his stated age who is in no acute distress. Communicates well with provider and answers questions appropriately. SKIN - Without rashes or lesions. NOSE - Midline and without cyanosis. MOUTH/OROPHARYNX - Without perioral cyanosis. LUNGS - Chest wall evaluation demonstrates normal chest wall A:P diameter. Auscultation reveals clear breath sounds without wheezes, rales, or rhonchi appreciated. CARDIAC - RRR with S1/S2. No murmur, rubs, or gallops appreciated. ABDOMEN - Abdominal inspection demonstrates an obese abdomen. BS normoactive all four quadrants. No tenderness, palpable masses, or ascites noted. EXTREMITIES - Nail clubbing not present. No peripheral cyanosis. No pretibial edema present. +3/5 radial palpated throughout. PSYCH - A&Ox3 and cooperates fully with examiner. Pt is very pleasant and interacts well with examiner. Results & Data Results & Data Vital Signs (Past 12 Hours) Vital Signs Temp Pulse Pulse Resp BP BP Pulse Ox 02/15/24 08:14 02/15/24 07:20 36.7 C 65 20 174/96 H 02/15/24 03:13 36.7 C 64 18 170/52 H 02/15/24 00:08 02/14/24 23:55 66 02/14/24 23:30 36.7 C 68 20 191/101 H 95 02/14/24 23:00 69 20 90 02/14/24 22:30 71 20 95 02/14/24 22:30 146/83 H 02/14/24 22:15 69 20 93 02/14/24 22:00 139/81 02/14/24 22:00 139/81 02/14/24 22:00 65 20 02/14/24 21:45 126/89 02/14/24 21:45 126/89 02/14/24 21:39 83 22 02/14/24 21:30 129/80 02/14/24 21:27 73 17 95 02/14/24 21:15 76 21 02/14/24 21:15 173/100 H 02/14/24 21:15 173/100 H 02/14/24 21:09 69 17 02/14/24 21:01 206/98 H 02/14/24 21:01 206/98 H 02/14/24 20:57 85 23 O2 Del Method O2 Flow Rate 02/15/24 08:14 Room Air 02/15/24 07:20 Room Air 02/15/24 03:13 Nasal Cannula 4 02/15/24 00:08 Nasal Cannula 4 02/14/24 23:55 02/14/24 23:30 Nasal Cannula 4 02/14/24 23:00 Nasal Cannula 4 02/14/24 22:30 Nasal Cannula 4 02/14/24 22:30 02/14/24 22:15 Nasal Cannula 2 02/14/24 22:00 02/14/24 22:00 02/14/24 22:00 02/14/24 21:45 02/14/24 21:45 02/14/24 21:39 02/14/24 21:30 02/14/24 21:27 Nasal Cannula 2 02/14/24 21:15 02/14/24 21:15 02/14/24 21:15 02/14/24 21:09 02/14/24 21:01 02/14/24 21:01 02/14/24 20:57 PG Care Time/CCT Total # of Minutes Spent Total Time Spent with Patient: Total time spent is greater than 50% in coordination of care (as documented) at patient's floor/unit and/or counseling patient: Coding Level of Care Code 03792 SUB INP/OBS CARE 235MIN Diagnoses Pulmonary embolism I26.99 Hypoxia R09.02 Rhinovirus infection B34.8 Hypersomnolence G47.10 Morbid obesity E66.01 Hypertension I10
[2024-02-15] MEDS: ASPIRIN 81 MG ECTAB PO PRN (10:12)
[2024-02-15] MEDS: carvediloL 25 MG TAB PO SCH (10:12)
[2024-02-15 10:33] LABS: Estimated Average Glucose 148 mg/dl; Hemoglobin A1C 6.8 % (4.5-5.6)
[2024-02-15] MEDS: MAGNESIUM SULFATE / D5W 1 GM/100 ML BAG IV SCH (12:43)
--- NOTE | 2024-02-15 13:08 | Hospitalist Progress Note ---
Date of Service February 15, 2024 Assessment & Plan (1) Pulmonary embolism: Plan: Unable to obtain chest CTA due to advanced CKD Thus, VQ scan obtained - intermediate to high probability for pulmonary embolism bilaterally Heparin IV with bolus started in the ED on 02/14/24 Risk factors for VTE - frequent long-distance plane travel + CKD; can't rule out other factors He is a very poor candidate for a DOAC due to his morbid obesity (and, to a certain degree, his CKD) Thus, will use coumadin Plan 15mg x 1 today and go from there Daily INR Cont heparin infusion Discussed all of the above with the patient & his Will review his case informally with the coumadin clinical care leader, Dr Salguero Suspect the bulk of his current respiratory symptoms is from rhinovirus induced bronchitis (2) Rhinovirus infection: Plan: Rhino/enterovirus (+) on [employer] care Droplet precautions For wheezing/cough add - * duonebs q6h scheduled * flutter valve * incentive spirometer * mucinex 1200mg BID Defer on systemic steroids at this time (3) Stage 5 chronic kidney disease due to type 2 diabetes mellitus: Plan: Creatinine 4.29 on arrival Baseline Cr - 3.5 to 4.5 ? Patient follows with [facility] outpatient; not currently on dialysis Recently referred for AV fistula and dialysis modality education session Avoid nephrotoxic agents Avoid NSAIDs Daily BMP while here (4) Resistant hypertension: Plan: Continue carvedilol, amlodipine, losartan, chlorthalidone, and Lasix Very complex regimen - consider checking renal artery dopplers if not done in the past Consider checking renin/anthony levels Check a TSH in the am (5) Anemia of chronic disease: Plan: Chronic; Hgb 9.1 on arrival; likely secondary to CKD H/H acceptable today (6) Type 2 diabetes mellitus: Plan: Hb A1c 6.8% Cont Lantus 15u BID Cont novolog but adjust parameters (CF 15, carb ratio 1:5) T2DM diet BSG ACHS (7) Allergic rhinitis: Plan: [place]ed on exam and has congestion nearly daily per his has evidence of eosinophilia add nasocort nasal spray add jonathan 60mg BID add mucinex 1200mg BID (8) Eosinophilia: Plan: could be all 2nd to severe allergic disease can't exclude eosinophilic asthma but he has no prior h/o asthma strongly consider referral to allergy after discharge (9) Morbid obesity with BMI of 50.0-59.9, adult: Plan: BMI 51 Plan updated at bedside extensively Hypomagnesemia - 2nd to double diuretics - mag sulfate 2 gram IV x 1 repeat mag level am appreciate pulmonary assistance Admission and Anticipated Discharge Date Admission Date: February 14, 2024 Subjective patient denies any dyspnea at rest or with exertion however, he continues with cough- some green mucous production continues to have wheezing he has long-standing allergic rhinitis - numerous environmental allergies [place] no formal dx of asthma no family history of VTE he traveled to [place] in Jul 2023 then traveled to [place] in September then to [place] in November then just got back from [place] a few days ago all travel by plane Review of Systems Review of Systems: gen - no fevers HENT - chronic nasal/sinus congestion ; no epistaxis cv - no pleuritic pain pulm - no hemoptysis GI - no melena or BRBPR Physical Exam Physical Exam: gen - sitting at side of bed, coughing, but no distress neck - no obvious JVD HENT - nose- inferior turbinates severely swollen, clear rhinnorhea noted; throat - unable to visualize posterior pharynx heart - RRR, s1 s2, no murmur lungs - diffuse wheezes b/l, decreased BS bases abd - soft NT ND BS+ ext - wearing compression hose b/l; no edema, pulses 2+ b/l psych - a/o x 3 Results & Data Results & Data Vital Signs (Past 12 Hours) Vital Signs Temp Pulse Pulse Resp BP BP Pulse Ox 02/15/24 12:19 65 02/15/24 11:07 36.6 C 65 22 195/88 H 95 02/15/24 08:14 02/15/24 07:20 36.7 C 65 20 174/96 H 91 02/15/24 03:13 36.7 C 64 18 170/52 H 91 O2 Del Method O2 Flow Rate 02/15/24 12:19 02/15/24 11:07 Room Air 02/15/24 08:14 Room Air 02/15/24 07:20 Room Air 02/15/24 03:13 Nasal Cannula 4 Laboratory Results Laboratory Results - last 24 hr 02/14/24 02/14/24 02/14/24 11:36 20:26 22:43 WBC RBC Hgb Hct MCV MCH MCHC RDW Std Deviation RDW Coeff of Verónica Plt Count MPV Immature Gran % (Auto) Neut % (Auto) Lymph % (Auto) [place] % (Auto) Eos % (Auto) Baso % (Auto) Neut # (Auto) Lymph # (Auto) [place] # (Auto) Eos # (Auto) Baso # (Auto) Immature Gran # (Auto) APTT 28 PTT Ratio 1.0 Heparin Anti-Xa, Unfract 0.49 Sodium Potassium Chloride Carbon Dioxide Anion Gap BUN Creatinine Est Cr Clr Drug Dosing Est GFR ( Amer) Est GFR (Non-Af Amer) BUN/Creatinine Ratio Glucose POC Glucose 128 H Estimat Average Glucose Hemoglobin A1c Calcium Magnesium Urine Color Urine Appearance Urine pH Ur Specific [place] Urine Protein Urine Glucose (UA) Urine Ketones Urine Blood Urine Nitrite Urine Bilirubin Urine Urobilinogen Ur Leukocyte Esterase Urine WBC (Auto) Urine RBC (Auto) U Hyaline Cast (Auto) U Epithel Cells (Auto) Urine Bacteria (Auto) 02/14/24 02/15/24 02/15/24 Unknown 07:17 07:25 WBC 3.92 L RBC 3.17 L Hgb 8.8 L Hct 28.5 L MCV 89.9 MCH 27.8 MCHC 30.9 L RDW Std Deviation 43.7 RDW Coeff of Verónica 13.3 Plt Count 163 MPV 11.7 Immature Gran % (Auto) 0.3 Neut % (Auto) 51.2 Lymph % (Auto) 23.5 [place] % (Auto) 13.3 Eos % (Auto) 11.2 Baso % (Auto) 0.5 Neut # (Auto) 2.01 Lymph # (Auto) 0.92 L [place] # (Auto) 0.52 Eos # (Auto) 0.44 Baso # (Auto) 0.02 Immature Gran # (Auto) 0.01 APTT PTT Ratio Heparin Anti-Xa, Unfract 0.45 Sodium 139 Potassium 4.5 Chloride 109 H Carbon Dioxide 25 Anion Gap 5 BUN 42 H Creatinine 3.69 H D Est Cr Clr Drug Dosing 43.7 Est GFR ( Amer) 21.3 Est GFR (Non-Af Amer) 18.4 BUN/Creatinine Ratio 11.4 Glucose 192 H POC Glucose 205 H Estimat Average Glucose 148 Hemoglobin A1c 6.8 H Calcium 8.5 L Magnesium 1.5 L Urine Color Yellow Urine Appearance Clear Urine pH 7.0 Ur Specific [place] 1.011 Urine Protein 2+ H Urine Glucose (UA) Negative Urine Ketones Negative Urine Blood 1+ H Urine Nitrite Negative Urine Bilirubin Negative Urine Urobilinogen Negative Ur Leukocyte Esterase Negative Urine WBC (Auto) 0-5 Urine RBC (Auto) 0-2 U Hyaline Cast (Auto) 0-2 U Epithel Cells (Auto) 0-2 Urine Bacteria (Auto) None Seen 02/15/24 11:04 WBC RBC Hgb Hct MCV MCH MCHC RDW Std Deviation RDW Coeff of Verónica Plt Count MPV Immature Gran % (Auto) Neut % (Auto) Lymph % (Auto) [place] % (Auto) Eos % (Auto) Baso % (Auto) Neut # (Auto) Lymph # (Auto) [place] # (Auto) Eos # (Auto) Baso # (Auto) Immature Gran # (Auto) APTT PTT Ratio Heparin Anti-Xa, Unfract Sodium Potassium Chloride Carbon Dioxide Anion Gap BUN Creatinine Est Cr Clr Drug Dosing Est GFR ( Amer) Est GFR (Non-Af Amer) BUN/Creatinine Ratio Glucose POC Glucose 164 H Estimat Average Glucose Hemoglobin A1c Calcium Magnesium Urine Color Urine Appearance Urine pH Ur Specific [place] Urine Protein Urine Glucose (UA) Urine Ketones Urine Blood Urine Nitrite Urine Bilirubin Urine Urobilinogen Ur Leukocyte Esterase Urine WBC (Auto) Urine RBC (Auto) U Hyaline Cast (Auto) U Epithel Cells (Auto) Urine Bacteria (Auto) Diagnostic Findings Chest CT 02/14/24 10:52 CT chest diagnostic wo con CT DOSE: 927.79 mGy.cm HISTORY: cough; shortness of breath; hypoxia TECHNIQUE: Multiaxial CT images of the chest were performed without contrast. A dose lowering technique was utilized adhering to the principles of ALARA. COMPARISON: None. FINDINGS: Mild diffuse bronchial wall thickening. Otherwise, the central airways are patent. No pneumothorax. No pleural effusions. No focal lung consolidations to suggest a pneumonia. No evidence for pulmonary edema. No acute fractures. The visualized thyroid gland is unremarkable. Limited views of the upper abdomen demonstrate a normal liver, spleen, and adrenal glands. Partially visualized left perinephric edema. Normal esophagus. The heart is normal in size. No pericardial effusion. Mild coronary artery calcifications are noted. Normal caliber thoracic aorta. No mediastinal or hilar lymphadenopathy. Decreased attenuation within the blood pool which could represent underlying anemia. IMPRESSION: 1. Mild diffuse bronchial wall thickening. This can be seen in the setting of a reactive airways disease or bronchitis. 2. No focal lung consolidations to suggest a pneumonia. 3. Mild coronary artery calcifications. 4. Decreased attenuation within the blood pool which could represent underlying anemia. Recommend correlation with laboratory values. ACT 112: Negative or not required by law. Electronically signed by: Monty Oswald M.D. 02/14/2024 12:01 PM Chest X-Ray 02/14/24 10:53 XR chest 1V portable HISTORY: Dyspnea COMPARISON: Chest 12/16/2023. FINDINGS: There are low lung volumes. No pneumothorax. No pleural effusions. The correct silhouette is top normal in size. This remains unchanged. The lungs are clear. No acute fractures. IMPRESSION: No significant change compared to the prior study. No acute process. ACT 112: Negative or not required by law. Electronically signed by: Monty Oswald M.D. 02/14/2024 11:48 AM Pulmonary Perfusion Imaging 02/14/24 12:11 NM pul perfusion HISTORY: 48 years-old Male chronic cough; hypoxia acute hypoxia COMPARISON: Duplex venous Doppler chest CT studies of same day TECHNIQUE: Nuclear medicine perfusion study was obtained following the intravenous demonstration of 5.2 mCi technetium 99 MAA administered via the left upper extremity. FINDINGS: Large segmental perfusion defects in the superior segment left lower lobe. Additional moderate sized right and small left upper lobe perfusion defects. IMPRESSION: Intermediate to high probability for pulmonary embolus. ACT 112: Negative or not required by law. The above report was generated using voice recognition software. It may contain grammatical, syntax or spelling errors. Electronically signed by: Martin Mccarthy M.D. 02/14/2024 3:12 PM Venous Doppler Study 02/14/24 12:11 BILATERAL LOWER EXTREMITY VENOUS DOPPLER HISTORY: Acute pain and swelling of the lower legs r/o DVT COMPARISON STUDY: None. FINDINGS: Limited study secondary to patient body habitus. There is normal compressibility, flow, and augmentation within the bilateral lower extremity deep venous systems. Subcutaneous edema. IMPRESSION: No DVT within the right or left lower extremity. ACT 112: Negative or not required by law. Electronically signed by: Martin Mccarthy M.D. 02/14/2024 2:31 PM PG Care Time/CCT Total # of Minutes Spent Total Time Spent with Patient: Total time spent is greater than 50% in coordination of care (as documented) at patient's floor/unit and/or counseling patient: Coding Level of Care Code 82414 SUB INP/OBS CARE 3/50MIN Diagnoses Pulmonary embolism I26.99 Rhinovirus infection B34.8 Stage 5 chronic kidney disease due to type 2 diabetes mellitus E11.22; N18.5 Resistant hypertension I10 Anemia of chronic disease D63.8 Type 2 diabetes mellitus E11.9 Allergic rhinitis J30.9 Eosinophilia D72.10 Morbid obesity with BMI of 50.0-59.9, adult E66.01; Z68.43
[2024-02-15] MEDS: ALBUT/IPRATROP 3MG/0.5MG NEB 3 ML VIAL NEB SCH (13:15)
[2024-02-15] MEDS: FLUTICASONE PROPIONATE NA SPR 16 GM BTL SCH (15:09)
[2024-02-15] MEDS: WARFARIN SOD 7.5 MG TAB PO ONE (15:09)
[2024-02-15] MEDS: FEXOFENADINE 60 MG TAB PO ONE (15:11)
[2024-02-15] MEDS: guaiFENesin 600 MG TABCR PO SCH (15:13)
--- NOTE | 2024-02-15 15:50 | XCELERA ---
[id number] [id number]
[2024-02-15] MEDS ORDERED: carvediloL 25 MG TAB PO SCH (18:45)
[2024-02-15] MEDS: FEXOFENADINE 60 MG TAB PO SCH (21:50)
--- NOTE | 2024-02-16 06:22 | Electrocardiogram Report ---
Test Reason : Blood Pressure : / mmHG Vent. Rate : 065 BPM Atrial Rate : 065 BPM P-R Int : 152 ms QRS Dur : 086 ms QT Int : 374 ms P-R-T Axes : 053 022 038 degrees QTc Int : 388 ms Sinus rhythm with Premature atrial complexes Cannot rule out Anterior infarct (cited on or before 14-FEB-2024) Abnormal ECG When compared with ECG of 28-MAY-2019 13:52, Premature atrial complexes are now Present Confirmed by Jesse Jones ([id number]) on 02/16/2024 6:22:27 AM Referred By: Confirmed By:Jesse Jones
[2024-02-16 06:37] LABS: Basophils # (auto) 0.02 K/uL (0.00-0.20); Basophils % (auto) 0.4 %; Eosinophils # (auto) 0.42 K/uL (0.00-0.50); Eosinophils % (auto) 9.2 %; Hematocrit (blood only) 28.4 % (42.0-52.0); Hemoglobin 8.8 g/dl (14.0-18.0); Immature Granulocytes # (auto) 0.02 K/uL (0.01-0.20); Immature Granulocytes % (auto) 0.4 %; Lymphocytes # (auto) 1.29 K/uL (1.20-3.40); Lymphocytes % (auto) 28.4 %; Mean Corpuscular Hemoglobin 27.4 pg (25.0-34.0); Mean Corpuscular Volume 88.5 fL (80.0-100.0); Mean Platelet Volume 11.5 fL (9.4-12.4); Monocytes # (auto) 0.43 K/uL (0.11-0.59); Monocytes % (auto) 9.5 %; Neutrophils # (auto) 2.37 K/uL (1.40-6.50); Neutrophils % (auto) 52.1 %; Platelet Count 178 K/uL (130-400); RDW Coefficient of Variation 13.2 % (11.5-14.5); Red Blood Count 3.21 M/uL (4.70-6.10); White Blood Count 4.55 K/ul (4.8-10.8)
[2024-02-16 06:50] LABS: ANTI-Xa, UFH(UnfractionatedHep 0.44 IU/ml (0.3-0.7); BUN Creatinine Ratio 11.1 (10-20); Calcium 8.5 mg/dl (8.6-10.3); Creatinine Clr Calc Pharmacy 43.8 ml/min; Est GFR (African American) 21.4 ml/min; Est GFR (Non-African American) 18.5 ml/min; Magnesium 1.6 mg/dl (1.7-2.4); Potassium 4.6 mmol/L (3.5-5.1); Prothrombin Time 11.1 Seconds (9.0-12.0)
[2024-02-16] MEDS: MAGNESIUM SULFATE / D5W 1 GM/100 ML BAG IV SCH (08:41)
[2024-02-16] MEDS: LOSARTAN POTASSIUM 50 MG TAB PO SCH (08:54)
[2024-02-16] MEDS: WARFARIN SOD 7.5 MG TAB PO ONE (08:55)
--- NOTE | 2024-02-16 15:13 | Hospitalist Progress Note ---
Date of Service February 16, 2024 Assessment & Plan (1) Pulmonary embolism: Plan: VQ scan with intermediate to high probability for pulmonary embolism bilaterally Heparin IV with bolus started in the ED on 02/14/24 - remains on such Risk factors for VTE - frequent long-distance plane travel + CKD; can't rule out other factors He is a very poor candidate for a DOAC due to his morbid obesity (and, to a certain degree, his CKD) 15mg of coumadin - 02/14 15mg of coumadin - 02/15 INR daily Coumadin clinic referral post-d/c (2) Rhinovirus infection: Plan: Rhino/enterovirus (+) on [employer] care Droplet precautions Cont - * duonebs q6h scheduled * flutter valve * incentive spirometer * mucinex 1200mg BID Cont to defer on systemic steroids at this time (3) Stage 5 chronic kidney disease due to type 2 diabetes mellitus: Plan: Creatinine 4.29 on arrival Baseline Cr - 3.5 to 4.5 Cr 3.68 today Patient follows with [facility] neph[facility] outpatient; not currently on dialysis Recently referred for AV fistula and dialysis modality education session Avoid nephrotoxic agents Avoid NSAIDs Daily BMP while here (4) Resistant hypertension: Plan: Continue carvedilol, amlodipine, losartan, chlorthalidone, and Lasix Very complex regimen - could have "secondary" causes of HTN (severe LUIS, etc) Renin/anthony levels in 2020 were wnl Renal artery dopplers in 2020 were wnl Check a TSH in the am Needs sleep study to r/o LUIS Prior to discharge perform overnight oximetry study If he qualifies for home O2 this can serve as a temporary bridge until formal sleep study is completed (5) Anemia of chronic disease: Plan: Chronic; Hgb 9.1 on arrival; likely secondary to CKD Hb 8.8 today Ferritin earlier in January was wnl Check B12/folate in am (6) Type 2 diabetes mellitus: Plan: Hb A1c 6.8% Cont Lantus 15u BID Cont novolog T2DM diet BSG ACHS (7) Allergic rhinitis: Plan: [place] congested on exam and has congestion nearly daily per his has evidence of eosinophilia cont nasocort nasal spray, jonathan 60mg BID, and mucinex 1200mg BID (8) Eosinophilia: Plan: could be all 2nd to severe allergic disease can't exclude eosinophilic asthma but he has no prior h/o asthma strongly consider referral to allergy after discharge (9) Morbid obesity with BMI of 50.0-59.9, adult: Plan: BMI 51 Plan updated at bedside extensively again today Hypomagnesemia - 2nd to double diuretics - give mag sulfate 2 gram IV x 1 again today repeat mag level am will obtain PT eval while here Admission and Anticipated Discharge Date Admission Date: February 14, 2024 Subjective patient feeling better today cough/congestion/wheezing improved nasal congestion improved denies dyspnea at bedside multiple questions about his echo, plan of care, etc he is hungry following meals - asks for double portions Review of Systems Review of Systems: cv - no chest pain pulm - no dyspnea or OMALLEY GI - no abd pain Physical Exam Physical Exam: gen - sitting at side of bed, no coughing today, no audible wheezing, looks good; obese neck - no obvious JVD HENT - MMM heart - RRR, s1 s2, no murmur lungs - no wheezes today, decreased BS bases, no rales, no increased work of breathing abd - soft NT ND BS+ ext - no edema, pulses 2+ b/l psych - a/o x 3 Results & Data Results & Data Vital Signs (Past 12 Hours) Vital Signs Temp Pulse Resp BP Pulse Ox O2 Del Method 02/16/24 13:29 66 18 96 Room Air 02/16/24 11:17 36.6 C 56 L 20 157/96 H 96 Room Air 02/16/24 08:50 Room Air 02/16/24 07:28 36.7 C 74 20 165/84 H 92 Room Air 02/16/24 07:11 64 18 92 Room Air 02/16/24 03:46 74 189/118 H Laboratory Results Laboratory Results - last 24 hr 02/15/24 02/15/24 02/16/24 16:23 20:09 06:12 WBC 4.55 L RBC 3.21 L Hgb 8.8 L Hct 28.4 L MCV 88.5 MCH 27.4 MCHC 31.0 L RDW Std Deviation 43.0 RDW Coeff of Verón[place] 13.2 Plt Count 178 MPV 11.5 Immature Gran % (Auto) 0.4 Neut % (Auto) 52.1 Lymph % (Auto) 28.4 Gem % (Auto) 9.5 Eos % (Auto) 9.2 Baso % (Auto) 0.4 Neut # (Auto) 2.37 Lymph # (Auto) 1.29 Gem # (Auto) 0.43 Eos # (Auto) 0.42 Baso # (Auto) 0.02 Immature Gran # (Auto) 0.02 PT 11.1 INR 1.0 Heparin Anti-Xa, Unfract 0.44 Sodium 138 Potassium 4.6 Chloride 107 Carbon Dioxide 25 Anion Gap 6 BUN 41 H Creatinine 3.68 H Est Cr Clr Drug Dosing 43.8 Est GFR ( Amer) 21.4 Est GFR (Non-Af Amer) 18.5 BUN/Creatinine Ratio 11.1 Glucose 149 H POC Glucose 124 H 137 H Calcium 8.5 L Magnesium 1.6 L 02/16/24 02/16/24 07:30 11:16 WBC RBC Hgb Hct MCV MCH MCHC RDW Std Deviation RDW Coeff of Verónica Plt Count MPV Immature Gran % (Auto) Neut % (Auto) Lymph % (Auto) [place] % (Auto) Eos % (Auto) Baso % (Auto) Neut # (Auto) Lymph # (Auto) Gem # (Auto) Eos # (Auto) Baso # (Auto) Immature Gran # (Auto) PT INR Heparin Anti-Xa, Unfract Sodium Potassium Chloride Carbon Dioxide Anion Gap BUN Creatinine Est Cr Clr Drug Dosing Est GFR ( Amer) Est GFR (Non-Af Amer) BUN/Creatinine Ratio Glucose POC Glucose 150 H 186 H Calcium Magnesium PG Care Time/CCT Total # of Minutes Spent Total Time Spent with Patient: Total time spent is greater than 50% in coordination of care (as documented) at patient's floor/unit and/or counseling patient: Coding Level of Care Code 13418 SUB INP/OBS CARE 3/50MIN Diagnoses Pulmonary embolism I26.99 Rhinovirus infection B34.8 Stage 5 chronic kidney disease due to type 2 diabetes mellitus E11.22; N18.5 Resistant hypertension I10 Anemia of chronic disease D63.8 Type 2 diabetes mellitus E11.9 Allergic rhinitis J30.9 Eosinophilia D72.10 Morbid obesity with BMI of 50.0-59.9, adult E66.01; Z68.43
[2024-02-17 07:13] LABS: BUN Creatinine Ratio 11.6 (10-20); Calcium 8.8 mg/dl (8.6-10.3); Creatinine Clr Calc Pharmacy 38.2 ml/min; Est GFR (African American) 18.1 ml/min; Est GFR (Non-African American) 15.6 ml/min; Magnesium 1.8 mg/dl (1.7-2.4); Potassium 4.6 mmol/L (3.5-5.1)
[2024-02-17 07:15] LABS: INR 1.4 (0.9-1.1); Prothrombin Time 14.6 Seconds (9.0-12.0)
[2024-02-17 07:28] LABS: Thyroid Stimulating Hormone 1.42 uIu/ml (0.300-4.500)
[2024-02-17 07:34] LABS: Folate (Folic Acid),Ser orPlas 5.61 ng/ml (>5.38)
[2024-02-17] MEDS ORDERED: ALBUT/IPRATROP 3MG/0.5MG NEB 3 ML VIAL NEB PRN (08:39)
[2024-02-17] MEDS: WARFARIN SOD 7.5 MG TAB PO ONE (09:20)
--- NOTE | 2024-02-17 20:42 | Hospitalist Progress Note ---
Date of Service February 17, 2024 Assessment & Plan (1) Pulmonary embolism: Plan: VQ scan with intermediate to high probability for pulmonary embolism bilaterally Heparin IV with bolus started in the ED on 02/14/24 - remains on such Risk factors for VTE - frequent long-distance plane travel + CKD; can't rule out other factors He is a very poor candidate for a DOAC due to his morbid obesity (and, to a certain degree, his CKD) INR today 1.4 - reflective of 02/14 coumadin dose INR goal is 2-3 15mg of coumadin - 02/14 15mg of coumadin - 02/15 15mg of coumadin again today, 02/16 INR daily Coumadin clinic referral post-d/c (2) Rhinovirus infection: Plan: Rhino/enterovirus (+) on [employer] care Droplet precautions Cont - * duonebs q6h scheduled * flutter valve * incentive spirometer * mucinex 1200mg BID Cont to defer on systemic steroids at this time (3) Stage 5 chronic kidney disease due to type 2 diabetes mellitus: Plan: Creatinine 4.29 on arrival Baseline Cr - 3.5 to 4.5 Cr 3.68 yesterday Cr licha back to >4 after resuming losartan Will hold losartan & lasix today Patient follows with [facility] outpatient; not currently on dialysis Recently referred for AV fistula and dialysis modality education session Avoid nephrotoxic agents Avoid NSAIDs Daily BMP while here (4) Resistant hypertension: Plan: Continue carvedilol, amlodipine, chlorthalidone; place losartan & Lasix on hold since creatinine licha overnight Very complex regimen - could have "secondary" causes of HTN (severe LUIS, etc) Renin/anthony levels in 2020 were wnl Renal artery dopplers in 2020 were wnl TSH noted to be normal Needs sleep study to r/o LUIS Prior to discharge perform overnight oximetry study If he qualifies for home O2 this can serve as a temporary bridge until formal sleep study is completed (5) Anemia of chronic disease: Plan: Chronic; Hgb 9.1 on arrival; likely secondary to CKD Hb since has been stable Ferritin earlier in January was wnl B12/folate wnl (6) Type 2 diabetes mellitus: Plan: Hb A1c 6.8% Cont Lantus 15u BID Cont novolog but loosen parameters due to a low yesterday T2DM diet BSG ACHS (7) Allergic rhinitis: Plan: [place] congested on exam and has congestion nearly daily per his has evidence of eosinophilia cont nasocort nasal spray, jonathan 60mg BID, and mucinex 1200mg BID to bring Astepro and will give order to allow usage (8) Eosinophilia: Plan: could be all 2nd to severe allergic disease can't exclude eosinophilic asthma but he has no prior h/o asthma strongly consider referral to allergy after discharge (9) Morbid obesity with BMI of 50.0-59.9, adult: Plan: BMI 51 Plan updated via speaker phone today Hypomagnesemia - 2nd to double diuretics - repleted, resolved no issues with ambulation; PT came to see him - patient told physical therapy he was doing well thus PT not indicated Admission and Anticipated Discharge Date Admission Date: February 14, 2024 Subjective wheezing/cough improved minor dyspnea on exertion still with nasal congestion otherwise feeling good excellent appetite tele wnl was on phone during the visit Review of Systems Review of Systems: gen - no fevers or chills cv - no chest pain pulm - mild sputum production GI - no abd pain or N/V Physical Exam Physical Exam: gen - sitting at side of bed, no coughing today, no audible wheezing, looks good; obese; does sound congested in nose/sinuses neck - no obvious JVD HENT - MMM heart - RRR, s1 s2, no murmur lungs - no wheezes, good airation today; no rales, no increased work of breathing abd - soft NT ND BS+ ext - no edema, pulses 2+ b/l psych - a/o x 3 Results & Data Results & Data Vital Signs (Past 12 Hours) Vital Signs Temp Pulse Resp BP BP Pulse Ox O2 Del Method 02/17/24 19:55 36.7 C 64 20 162/95 H 92 Room Air 02/17/24 16:47 66 165/86 H 02/17/24 16:06 36.3 C L 60 20 155/81 H 93 Room Air 02/17/24 10:37 Room Air 02/17/24 10:31 36.7 C 55 L 20 165/91 H 92 Room Air Laboratory Results Laboratory Results - last 24 hr 02/17/24 02/17/24 02/17/24 06:36 07:28 12:06 PT 14.6 H INR 1.4 H Sodium 138 Potassium 4.6 Chloride 106 Carbon Dioxide 26 Anion Gap 6 BUN 49 H Creatinine 4.23 H D Est Cr Clr Drug Dosing 38.2 Est GFR ( Amer) 18.1 Est GFR (Non-Af Amer) 15.6 BUN/Creatinine Ratio 11.6 Glucose 138 H POC Glucose 166 H 163 H Calcium 8.8 Magnesium 1.8 Vitamin B12 337 Folate 5.61 TSH 1.420 02/17/24 02/17/24 16:23 20:14 PT INR Sodium Potassium Chloride Carbon Dioxide Anion Gap BUN Creatinine Est Cr Clr Drug Dosing Est GFR ( Amer) Est GFR (Non-Af Amer) BUN/Creatinine Ratio Glucose POC Glucose 96 109 H Calcium Magnesium Vitamin B12 Folate TSH PG Care Time/CCT Total # of Minutes Spent Total Time Spent with Patient: Total time spent is greater than 50% in coordination of care (as documented) at patient's floor/unit and/or counseling patient: Coding Level of Care Code 80596 SUB INP/OBS CARE 2/35MIN Diagnoses Pulmonary embolism I26.99 Rhinovirus infection B34.8 Stage 5 chronic kidney disease due to type 2 diabetes mellitus E11.22; N18.5 Resistant hypertension I10 Anemia of chronic disease D63.8 Type 2 diabetes mellitus E11.9 Allergic rhinitis J30.9 Eosinophilia D72.10 Morbid obesity with BMI of 50.0-59.9, adult E66.01; Z68.43
[2024-02-17] MEDS: LANTUS PER UNIT CHARGE SQ ONE (21:32)
[2024-02-18 08:05] LABS: BUN Creatinine Ratio 12.2 (10-20); Calcium 8.9 mg/dl (8.6-10.3); Creatinine Clr Calc Pharmacy 38.7 ml/min; Est GFR (African American) 18.3 ml/min; Est GFR (Non-African American) 15.8 ml/min; Potassium 4.8 mmol/L (3.5-5.1)
[2024-02-18 08:31] LABS: ANTI-Xa, UFH(UnfractionatedHep 0.35 IU/ml (0.3-0.7); INR 2.2 (0.9-1.1); Prothrombin Time 21.9 Seconds (9.0-12.0)
[2024-02-18] MEDS: ISOSORBIDE MONO EXTENDED REL 30 MG TABCR PO SCH (11:53)
[2024-02-18] MEDS: WARFARIN SOD 10 MG TAB PO SCH (16:51)
--- NOTE | 2024-02-18 18:27 | Hospitalist Progress Note ---
Date of Service February 18, 2024 Assessment & Plan (1) Pulmonary embolism: Plan: VQ scan with intermediate to high probability for pulmonary embolism bilaterally Heparin IV with bolus started in the ED on 02/14/24 - remains on such Risk factors for VTE - frequent long-distance plane travel + CKD; can't rule out other factors He is a very poor candidate for a DOAC due to his morbid obesity (and, to a certain degree, his CKD) INR today 2.2 - reflective of 02/15 coumadin dose INR goal is 2-3 15mg of coumadin - 02/14 15mg of coumadin - 02/15 15mg of coumadin - 02/16 10mg of coumadin to be given today INR in am Coumadin clinic referral post-d/c Cont heparin drip (2) Rhinovirus infection: Plan: Rhino/enterovirus (+) on [employer] Supportive care Droplet precautions Cont - * duonebs q6h scheduled * flutter valve * incentive spirometer * mucinex 1200mg BID Cont to defer on systemic steroids at this time (3) Stage 5 chronic kidney disease due to type 2 diabetes mellitus: Plan: Creatinine 4.29 on arrival Baseline Cr - 3.5 to 4.5 Cr 4.1 today Cr licha back to >4 after resuming losartan Cont to hold losartan & lasix today; still appears euvolemic Patient follows with [facility] nephrology outpatient; not currently on dialysis Recently referred for AV fistula and dialysis modality education session Avoid nephrotoxic agents Avoid NSAIDs Daily BMP while here (4) Resistant hypertension: Plan: Continue carvedilol, amlodipine, chlorthalidone; placed losartan & Lasix on hold since creatinine licha 2 nights ago BPs very high still - add imdur 30mg daily while losartan/lasix on hold Very complex regimen - could have "secondary" causes of HTN (severe LUIS, etc) Renin/anthony levels in 2020 were wnl Renal artery dopplers in 2020 were wnl TSH noted to be normal Needs sleep study to r/o LUIS Prior to discharge perform overnight oximetry study If he qualifies for home O2 this can serve as a temporary bridge until formal sleep study is completed (5) Anemia of chronic disease: Plan: Chronic; Hgb 9.1 on arrival; likely secondary to CKD Hb since has been stable Ferritin earlier in January was wnl B12/folate wnl (6) Type 2 diabetes mellitus: Plan: Hb A1c 6.8% Cont Lantus 15u BID Cont novolog T2DM diet BSG ACHS (7) Allergic rhinitis: Plan: [place] congested on exam and has congestion nearly daily per his has evidence of eosinophilia cont nasocort nasal spray, jonathan 60mg BID, and mucinex 1200mg BID brought Astepro and will give order to allow usage while here - 2 sprays each nostril BID (8) Eosinophilia: Plan: could be all 2nd to severe allergic disease can't exclude eosinophilic asthma but he has no prior h/o asthma strongly consider referral to allergy after discharge (9) Morbid obesity with BMI of 50.0-59.9, adult: Plan: BMI 51 Plan updated at bedside today Hypomagnesemia - 2nd to double diuretics - repleted, resolved no issues with ambulation; PT came to see him - patient told physical therapy he was doing well thus PT not indicated Admission and Anticipated Discharge Date Admission Date: February 14, 2024 Subjective patient denies any complaints cough much improved congestion improved not as much sputum production denies dyspnea eating well no c/o pain any location tele overnight wnl Review of Systems Review of Systems: gen - feels well GI - no abd pain or N/V; last stool? pulm - no dyspnea or OMALLEY CV - no chest pain Physical Exam Physical Exam: gen - looks well, NAD neck - no obvious JVD HENT - MMM heart - RRR, s1 s2, no murmur lungs - no wheezes, good airation; no rales, no increased work of breathing abd - soft NT ND BS+ ext - trace edema b/l shins/ankles, pulses 2+ b/l psych - a/o x 3 Results & Data Results & Data Vital Signs (Past 12 Hours) Vital Signs Temp Pulse Resp BP BP Pulse Ox O2 Del Method 02/18/24 15:26 36.6 C 46 L 21 169/75 H 94 Room Air 02/18/24 10:54 Room Air 02/18/24 10:48 36.7 C 64 20 187/78 H 95 Room Air Laboratory Results Laboratory Results - last 24 hr 02/17/24 02/18/24 02/18/24 20:14 07:22 07:28 PT 21.9 H INR 2.2 H Heparin Anti-Xa, Unfract 0.35 Sodium 137 Potassium 4.8 Chloride 105 Carbon Dioxide 26 Anion Gap 6 BUN 51 H Creatinine 4.18 H Est Cr Clr Drug Dosing 38.7 Est GFR ( Amer) 18.3 Est GFR (Non-Af Amer) 15.8 BUN/Creatinine Ratio 12.2 Glucose 129 H POC Glucose 109 H 143 H Calcium 8.9 02/18/24 02/18/24 11:17 16:20 PT INR Heparin Anti-Xa, Unfract Sodium Potassium Chloride Carbon Dioxide Anion Gap BUN Creatinine Est Cr Clr Drug Dosing Est GFR ( Amer) Est GFR (Non-Af Amer) BUN/Creatinine Ratio Glucose POC Glucose 147 H 115 H Calcium PG Care Time/CCT Total # of Minutes Spent Total Time Spent with Patient: Total time spent is greater than 50% in coordination of care (as documented) at patient's floor/unit and/or counseling patient: Coding Level of Care Code 34291 SUB INP/OBS CARE 2/35MIN Diagnoses Pulmonary embolism I26.99 Rhinovirus infection B34.8 Stage 5 chronic kidney disease due to type 2 diabetes mellitus E11.22; N18.5 Resistant hypertension I10 Anemia of chronic disease D63.8 Type 2 diabetes mellitus E11.9 Allergic rhinitis J30.9 Eosinophilia D72.10 Morbid obesity with BMI of 50.0-59.9, adult E66.01; Z68.43
[2024-02-18] MEDS: ASTEPRO SCH (20:47)
[2024-02-18] MEDS ORDERED: AZELASTINE HCL 0.1% NASAL 200 SPRAYS/27,400 MCG BTL SCH (21:00)
[2024-02-19 07:19] LABS: ANTI-Xa, UFH(UnfractionatedHep 0.36 IU/ml (0.3-0.7); INR 2.4 (0.9-1.1); Prothrombin Time 23.9 Seconds (9.0-12.0)
[2024-02-19 07:58] LABS: BUN Creatinine Ratio 13.3 (10-20); Creatinine Clr Calc Pharmacy 34.6 ml/min; Est GFR (Non-African American) 13.8 ml/min; Potassium 4.8 mmol/L (3.5-5.1)
--- NOTE | 2024-02-19 09:50 | CT Scan Report ---
ABDOMEN AND PELVIS CT WITHOUT CONTRAST CT DOSE: 1605.89 mGy.cm HISTORY: JOSE ANTONIO/CKD; eval signs of obstruction, stones, etc TECHNIQUE: Multiaxial CT images of the abdomen and pelvis were performed without contrast. A dose lo wering technique was utilized adhering to the principles of ALARA. COMPARISON STUDY: None. FINDINGS: A few bibasilar linear densities favor subsegmental atelectasis or scarring. No pneumoperit oneum. No pneumatosis. No acute fractures identified. The unenhanced liver, gallbladder, pancreas, sp delilah, and adrenal glands unremarkable. There is moderate bilateral perinephric edema. No renal or ure teral stones. No hydronephrosis. Normal caliber abdominal aorta. No retroperitoneal or pelvic lymphad enopathy. No pelvic free fluid. Normal bladder. Suboptimal evaluation for bowel pathology due to the lack of intravenous and oral contrast. However, there is no definite bowel wall thickening or obstruc tion. Colonic diverticulosis. No evidence for acute diverticulitis. Normal appendix. IMPRESSION: 1. Moderate bilateral perinephric edema. This may be chronic. 2. No renal or ureteral stones. No hydronephrosis. 3. No bowel wall thickening or obstruction. 4. Normal appendix ACT 112: Negative or not required by law. Electronically signed by: Monty Oswald M.D. 02/19/2024 9:48 AM
[2024-02-19] MEDS: hydrALAZINE HCL 25 MG TAB PO SCH (10:41)
[2024-02-19] MEDS: WARFARIN SOD 5 MG TAB PO ONE (17:08)
[2024-02-19 18:23] LABS: BUN Creatinine Ratio 12.8 (10-20); Calcium 9.1 mg/dl (8.6-10.3); Est GFR (African American) 14.6 ml/min; Est GFR (Non-African American) 12.6 ml/min; Potassium 4.8 mmol/L (3.5-5.1)
[2024-02-19] MEDS: SODIUM CHLORIDE 0.9% 1,000 ML IV SCH (20:53)
--- NOTE | 2024-02-19 23:29 | Hospitalist Progress Note ---
Date of Service February 19, 2024 Assessment & Plan (1) Pulmonary embolism: Plan: VQ scan with intermediate to high probability for pulmonary embolism bilaterally Heparin IV with bolus started in the ED on 02/14/24 - remains on such Risk factors for VTE - frequent long-distance plane travel + CKD; can't rule out other factors He is a very poor candidate for a DOAC due to his morbid obesity (and, to a certain degree, his CKD) INR today 2.4 INR goal is 2-3 15mg of coumadin - 02/14 15mg of coumadin - / 15mg of coumadin - /2 10mg of coumadin - 8/3 will give 15mg of coumadin today INR in am needs 2-day overlap period - thus continue heparin IV if INR tomorrow is >2 will stop IV heparin Coumadin clinic referral post-d/c (2) Rhinovirus infection: Plan: Rhino/enterovirus (+) on [employer] Illness improving/resolving Cont droplet precautions Cont - * duonebs q6h scheduled * flutter valve * incentive spirometer * mucinex 1200mg BID (3) JOSE ANTONIO (acute kidney injury): Plan: pt's creatinine had been about 3.5/3.6 earlier in the week attempts to reintroduce his losartan and lasix were met with rising creatinine both placed back on hold despite supportive care his creatinine continues to rise CT a/p today w/o signs of obstruction u/a at admission with proteinuria (baseline) but otherwise bland JOSE ANTONIO may be on the basis of his juahohvot-ax-raicasi and fluctuating HTN (was >200 systolic at admission) and attempts to reintroduce his losartan/lasix Plan - * hold losartan * hold lasix * start saline at 100cc/hr * repeat BMP am * avoid nephrotoxic agents * use imdur/hydralazine in judah of losartan/lasix for now * cont other anti-hypertensives as is (4) Stage 5 chronic kidney disease due to type 2 diabetes mellitus: Plan: Creatinine 4.29 on arrival Baseline Cr - 3.5 to 4.5 Had dropped down to about 3.5/3.6 - now 5 this afternoon see JOSE ANTONIO above Cont to hold losartan & lasix today; still appears euvolemic; no evidence of hypervolemia or hypovolemia Patient follows with [place] nephrology outpatient; not currently on dialysis Recently referred for AV fistula and dialysis modality education session Avoid nephrotoxic agents Avoid NSAIDs Daily BMP while here (5) Resistant hypertension: Plan: Continue carvedilol, amlodipine, chlorthalidone; placed losartan & Lasix on hold since creatinine licha this past week BPs high all week- added imdur 30mg daily and plan to add hydralazine 25mg BID today Very complex regimen - could have "secondary" causes of HTN (severe LUIS, etc) Renin/anthony levels in 2020 were wnl Renal artery dopplers in 2020 were wnl TSH noted to be normal Needs sleep study to r/o LUIS Prior to discharge perform overnight oximetry study If he qualifies for home O2 this can serve as a temporary bridge until formal sleep study is completed (6) Anemia of chronic disease: Plan: Chronic; Hgb 9.1 on arrival; likely secondary to CKD Hb since has been stable Ferritin earlier in January was wnl B12/folate wnl repeat CBC am for stability (7) Type 2 diabetes mellitus: Plan: Hb A1c 6.8% Cont Lantus 15u BID Cont novolog T2DM diet BSG ACHS (8) Allergic rhinitis: Plan: [place] congested on exam and has congestion nearly daily per his has evidence of eosinophilia cont nasocort nasal spray, jonathan 60mg BID, astepro BID, and mucinex 1200mg BID (9) Eosinophilia: Plan: could be all 2nd to severe allergic disease can't exclude eosinophilic asthma but he has no prior h/o asthma strongly consider referral to allergy after discharge recheck cbc w/ diff in am (10) Morbid obesity with BMI of 50.0-59.9, adult: Plan: BMI 51 Plan updated at bedside today Hypomagnesemia - 2nd to double diuretics - repleted, resolved no issues with ambulation; PT came to see him - patient told physical therapy he was doing well thus PT not indicated discharge will hinge on status of his creatinine care informally discussed with on-call [facility] Nephrology by phone Admission and Anticipated Discharge Date Admission Date: February 14, 2024 Subjective no acute issues overnight he feels well he is eating robustly he is ambulating w/o difficulty tele overnight - NSR states astepro is helping his nasal congestion voiding w/o LUTS no acute bleeding issues at bedside we discussed his JOSE ANTONIO Review of Systems Review of Systems: cv - no cp, no edema pulm - no dyspnea or OMALLEY; cough improving; sputum is minimal GI - no abd pain or N/V Physical Exam Physical Exam: gen - looks well, NAD, no coughing during the visit neck - no obvious JVD HENT - MMM; inferior nasal turbinates less swollen heart - RRR, s1 s2, no murmur lungs - no wheezes, no rales; good airation, CTA b/l abd - soft NT ND BS+ ext - no edema b/l, pulses 2+ b/l psych - a/o x 3 Results & Data Results & Data Vital Signs (Past 12 Hours) Vital Signs Temp Pulse Pulse Resp BP BP Pulse Ox 02/19/24 23:22 36.5 C 54 L 18 152/74 H 93 02/19/24 22:38 57 L 02/19/24 21:00 02/19/24 19:39 36.4 C L 59 L 18 156/87 H 94 02/19/24 17:09 63 02/19/24 15:42 36.5 C 52 L 18 161/80 H 91 02/19/24 15:06 O2 Del Method 02/19/24 23:22 Room Air 02/19/24 22:38 02/19/24 21:00 Room Air 02/19/24 19:39 Room Air 02/19/24 17:09 02/19/24 15:42 Room Air 02/19/24 15:06 Room Air Laboratory Results Laboratory Results - last 24 hr 02/19/24 02/19/24 02/19/24 06:10 06:12 07:18 PT 23.9 H INR 2.4 H Heparin Anti-Xa, Unfract 0.36 Sodium 137 Potassium 4.8 Chloride 104 Carbon Dioxide 26 Anion Gap 7 BUN 62 H Creatinine 4.67 H* D Est Cr Clr Drug Dosing 34.6 Est GFR ( Amer) 16.0 Est GFR (Non-Af Amer) 13.8 BUN/Creatinine Ratio 13.3 Glucose 168 H POC Glucose 182 H Calcium 9.0 02/19/24 02/19/24 02/19/24 11:19 16:23 17:32 PT INR Heparin Anti-Xa, Unfract Sodium 135 L Potassium 4.8 Chloride 104 Carbon Dioxide 24 Anion Gap 7 BUN 65 H Creatinine 5.06 H* D Est Cr Clr Drug Dosing 32.0 Est GFR ( Amer) 14.6 Est GFR (Non-Af Amer) 12.6 BUN/Creatinine Ratio 12.8 Glucose 159 H POC Glucose 170 H 118 H Calcium 9.1 02/19/24 20:22 PT INR Heparin Anti-Xa, Unfract Sodium Potassium Chloride Carbon Dioxide Anion Gap BUN Creatinine Est Cr Clr Drug Dosing Est GFR ( Amer) Est GFR (Non-Af Amer) BUN/Creatinine Ratio Glucose POC Glucose 145 H Calcium Diagnostic Findings Abdomen/Pelvis CT 02/19/24 08:[address] WITHOUT CONTRAST CT DOSE: 1605.89 mGy.cm HISTORY: JOSE ANTONIO/CKD; eval signs of obstruction, stones, etc TECHNIQUE: Multiaxial CT images of the abdomen and pelvis were performed without contrast. A dose lowering technique was utilized adhering to the principles of ALARA. COMPARISON STUDY: None. FINDINGS: A few bibasilar linear densities favor subsegmental atelectasis or scarring. No pneumoperitoneum. No pneumatosis. No acute fractures identified. The unenhanced liver, gallbladder, pancreas, spleen, and adrenal glands unremarkable. There is moderate bilateral perinephric edema. No renal or ureteral stones. No hydronephrosis. Normal caliber abdominal aorta. No retroperitoneal or pelvic lymphadenopathy. No pelvic free fluid. Normal bladder. Suboptimal evaluation for bowel pathology due to the lack of intravenous and oral contrast. However, there is no definite bowel wall thickening or obstruction. Colonic diverticulosis. No evidence for acute diverticulitis. Normal appendix. IMPRESSION: 1. Moderate bilateral perinephric edema. This may be chronic. 2. No renal or ureteral stones. No hydronephrosis. 3. No bowel wall thickening or obstruction. 4. Normal appendix ACT 112: Negative or not required by law. Electronically signed by: Monty Oswald M.D. 02/19/2024 9:48 AM PG Care Time/CCT Total # of Minutes Spent Total Time Spent with Patient: Total time spent is greater than 50% in coordination of care (as documented) at patient's floor/unit and/or counseling patient: Coding Level of Care Code 61974 SUB INP/OBS CARE 3/50MIN Diagnoses Pulmonary embolism I26.99 Rhinovirus infection B34.8 JOSE ANTONIO (acute kidney injury) N17.9 Stage 5 chronic kidney disease due to type 2 diabetes mellitus E11.22; N18.5 Resistant hypertension I10 Anemia of chronic disease D63.8 Type 2 diabetes mellitus E11.9 Allergic rhinitis J30.9 Eosinophilia D72.10 Morbid obesity with BMI of 50.0-59.9, adult E66.01; Z68.43
[2024-02-20 08:28] LABS: Basophils # (auto) 0.02 K/uL (0.00-0.20); Basophils % (auto) 0.5 %; Eosinophils # (auto) 0.24 K/uL (0.00-0.50); Hematocrit (blood only) 31.8 % (42.0-52.0); Hemoglobin 9.6 g/dl (14.0-18.0); Immature Granulocytes # (auto) 0.03 K/uL (0.01-0.20); Immature Granulocytes % (auto) 0.7 %; Lymphocytes # (auto) 1.44 K/uL (1.20-3.40); Lymphocytes % (auto) 35.9 %; Mean Corpuscular Hemoglobin 27.4 pg (25.0-34.0); Mean Corpuscular Hgb Conc 30.2 g/dL (32.0-36.0); Mean Corpuscular Volume 90.9 fL (80.0-100.0); Mean Platelet Volume 11.6 fL (9.4-12.4); Monocytes # (auto) 0.37 K/uL (0.11-0.59); Monocytes % (auto) 9.2 %; Neutrophils # (auto) 1.91 K/uL (1.40-6.50); Neutrophils % (auto) 47.7 %; Platelet Count 233 K/uL (130-400); RDW Coefficient of Variation 12.9 % (11.5-14.5); RDW Standard Deviation 42.1 fL (36.4-46.3); White Blood Count 4.01 K/ul (4.8-10.8)
[2024-02-20 09:02] LABS: ANTI-Xa, UFH(UnfractionatedHep 0.39 IU/ml (0.3-0.7); INR 2.8 (0.9-1.1); Prothrombin Time 27.4 Seconds (9.0-12.0)
[2024-02-20 09:34] LABS: Calcium 8.8 mg/dl (8.6-10.3); Potassium 4.8 mmol/L (3.5-5.1)
[2024-02-20 09:41] LABS: BUN Creatinine Ratio 14.1 (10-20); Creatinine Clr Calc Pharmacy 34.6 ml/min; Est GFR (Non-African American) 13.8 ml/min
[2024-02-20] MEDS: WARFARIN SOD 7.5 MG TAB PO SCH (15:44)
--- NOTE | 2024-02-21 00:08 | Hospitalist Progress Note ---
Date of Service February 20, 2024 Assessment & Plan (1) Pulmonary embolism: Plan: VQ scan with intermediate to high probability for pulmonary embolism bilaterally Heparin IV with bolus started in the ED on 02/14/24 - remains on such Risk factors for VTE - frequent long-distance plane travel + CKD; can't rule out other factors He is a very poor candidate for a DOAC due to his morbid obesity (and, to a certain degree, his CKD) INR today 2.8 INR goal is 2-3 15mg of coumadin - / 15mg of coumadin - 8/1 15mg of coumadin - 8/2 10mg of coumadin - 8/3 15mg of coumadin - 8/4 thus far patient has had total of 70mg of coumadin over 5 days will LOWER coumadin dosing to 7.5mg daily INR in am has met the "2-day overlap period" - stop heparin IV Coumadin clinic referral post-d/c; referral form completed & given to Rickey in case management Suspect he will be alternating between 10mg on some days and 7.5mg on other days Tomorrow's INR will shed more light on such (2) Rhinovirus infection: Plan: Rhino/enterovirus (+) on [employer] Illness resolving Cont droplet precautions Cont - * duonebs q6h scheduled * flutter valve * incentive spirometer * mucinex 1200mg BID (3) JOSE ANTONIO (acute kidney injury): Plan: pt's creatinine had been about 3.5/3.6 earlier in the week attempts to reintroduce his losartan and lasix were met with rising creatinine both placed back on hold despite supportive care his creatinine continued to rise with peak of 5 on 02/19/24 Creatinine modestly improved overnight -- now 4.67 CT a/p w/o signs of obstruction u/a at admission with proteinuria (baseline) but otherwise bland JOSE ANTONIO may be on the basis of his [id number] and fluctuating HTN (was >200 systolic at admission) and attempts to reintroduce his losartan/lasix Plan - * cont to hold losartan * cont to hold lasix * cont NS at 100cc/hr * repeat BMP am * avoid nephrotoxic agents * use imdur/hydralazine in judah of losartan/lasix * cont other anti-hypertensives as is (4) Stage 5 chronic kidney disease due to type 2 diabetes mellitus: Plan: Creatinine 4.29 on arrival Baseline Cr - 3.5 to 4.5 Had dropped down to about 3.5/3.6 earlier in the stay; then licha to 5 on 02/19/24 see JOSE ANTONIO above Cont to hold losartan & lasix today; still appears euvolemic; no evidence of hypervolemia or hypovolemia Patient follows with [place] nephrology outpatient; not currently on dialysis Recently referred for AV fistula and dialysis modality education session Avoid nephrotoxic agents Avoid NSAIDs BMP am (5) Resistant hypertension: Plan: Continue carvedilol, amlodipine, chlorthalidone; placed losartan & Lasix on hold since creatinine licha this past week Added imdur 30mg daily and hydralazine 25mg BID SBPs have improved -- highest readings were >200; now 150-160 range Very complex regimen - could have "secondary" causes of HTN (severe LUIS, etc) Renin/anthony levels in 2020 were wnl Renal artery dopplers in 2020 were wnl TSH noted to be normal Needs sleep study to r/o LUIS Will perform overnight oximetry study tonight If he qualifies for home O2 this can serve as a temporary bridge until formal sleep study is completed (6) Anemia of chronic disease: Plan: Chronic; Hgb 9.1 on arrival; likely secondary to CKD Hb since has been stable with Hb 9.6 today Ferritin earlier in January was wnl B12/folate wnl (7) Type 2 diabetes mellitus: Plan: Hb A1c 6.8% Cont Lantus 15u BID Cont novolog Controlled T2DM diet BSG ACHS (8) Allergic rhinitis: Plan: severe [place] very congested on exam and has congestion nearly daily per his has evidence of eosinophilia on CBC w/ diff cont nasocort nasal spray, jonathan 60mg BID, astepro BID, and mucinex 1200mg BID (9) Eosinophilia: Plan: could be all 2nd to severe allergic disease can't exclude eosinophilic asthma but he has no prior h/o asthma strongly consider referral to allergy after discharge (10) Morbid obesity with BMI of 50.0-59.9, adult: Plan: BMI 51 Plan updated at bedside once again today If creatinine is stable on 02/21/24 and if INR is acceptable he can d/c home f/u coumadin clinic within the next week for management Admission and Anticipated Discharge Date Admission Date: February 14, 2024 Physical Exam Physical Exam: gen - looks well, NAD, no coughing during the visit neck - no obvious JVD HENT - MMM; inferior nasal turbinates less swollen heart - RRR, s1 s2, no murmur lungs - no wheezes, no rales; good airation, CTA b/l abd - soft NT ND BS+ ext - no edema b/l, pulses 2+ b/l psych - a/o x 3 Results & Data Results & Data Vital Signs (Past 12 Hours) Vital Signs Temp Pulse Resp BP 02/20/24 19:00 36.5 C 67 21 176/95 H 02/20/24 15:53 36.7 C 51 L 17 145/80 H 02/20/24 10:57 36.9 C 58 L 20 154/90 H 02/20/24 07:38 36.6 C 62 19 165/94 H 02/20/24 04:00 36.6 C 62 18 153/87 H Laboratory Results Laboratory Results - last 24 hr 02/20/24 02/20/24 02/20/24 06:50 07:15 11:35 WBC 4.01 L RBC 3.50 L Hgb 9.6 L Hct 31.8 L MCV 90.9 MCH 27.4 MCHC 30.2 L RDW Std Deviation 42.1 RDW Coeff of [place] 12.9 Plt Count 233 MPV 11.6 Immature Gran % (Auto) 0.7 Neut % (Auto) 47.7 Lymph % (Auto) 35.9 [place] % (Auto) 9.2 Eos % (Auto) 6.0 Baso % (Auto) 0.5 Neut # (Auto) 1.91 Lymph # (Auto) 1.44 [place] # (Auto) 0.37 Eos # (Auto) 0.24 Baso # (Auto) 0.02 Immature Gran # (Auto) 0.03 PT 27.4 H INR 2.8 H Heparin Anti-Xa, Unfract 0.39 Sodium 136 Potassium 4.8 Chloride 105 Carbon Dioxide 24 Anion Gap 7 BUN 66 H Creatinine 4.67 H* D Est Cr Clr Drug Dosing 34.6 Est GFR ( Amer) 16.0 Est GFR (Non-Af Amer) 13.8 BUN/Creatinine Ratio 14.1 Glucose 150 H POC Glucose 165 H 115 H Calcium 8.8 02/20/24 16:23 WBC RBC Hgb Hct MCV MCH MCHC RDW Std Deviation RDW Coeff of [place] Plt Count MPV Immature Gran % (Auto) Neut % (Auto) Lymph % (Auto) [place] % (Auto) Eos % (Auto) Baso % (Auto) Neut # (Auto) Lymph # (Auto) [place] # (Auto) Eos # (Auto) Baso # (Auto) Immature Gran # (Auto) PT INR Heparin Anti-Xa, Unfract Sodium Potassium Chloride Carbon Dioxide Anion Gap BUN Creatinine Est Cr Clr Drug Dosing Est GFR ( Amer) Est GFR (Non-Af Amer) BUN/Creatinine Ratio Glucose POC Glucose 146 H Calcium PG Care Time/CCT Total # of Minutes Spent Total Time Spent with Patient: Total time spent is greater than 50% in coordination of care (as documented) at patient's floor/unit and/or counseling patient: Coding Level of Care Code 58074 SUB INP/OBS CARE 2/35MIN Diagnoses Pulmonary embolism I26.99 Rhinovirus infection B34.8 JOSE ANTONIO (acute kidney injury) N17.9 Stage 5 chronic kidney disease due to type 2 diabetes mellitus E11.22; N18.5 Resistant hypertension I10 Anemia of chronic disease D63.8 Type 2 diabetes mellitus E11.9 Allergic rhinitis J30.9 Eosinophilia D72.10 Morbid obesity with BMI of 50.0-59.9, adult E66.01; Z68.43
[2024-02-21 08:11] LABS: INR 3.6 (0.9-1.1); Prothrombin Time 35.1 Seconds (9.0-12.0)
[2024-02-21 08:12] LABS: BUN Creatinine Ratio 14.8 (10-20); Calcium 8.6 mg/dl (8.6-10.3); Est GFR (African American) 17.6 ml/min; Est GFR (Non-African American) 15.2 ml/min; Potassium 5.2 mmol/L (3.5-5.1)
--- NOTE | 2024-02-21 18:57 | Discharge Summary ---
Discharge Summary Date of Service February 21, 2024 Principal Dx & Hospital Course #1 = Principal Diagnosis (1) Pulmonary embolism: 48 y/o man presented to pulmonology for an ongoing nonproductive cough and intermittent wheezing x 2 months. He denies any SOB at rest or with exertion and denies chest pain. He had desat to 84% on room air with ambulation so asset protection professional referred him to ED to be evaluated for PE. VQ scan with intermediate to high probability for pulmonary embolism bilaterally Heparin IV started in the ED Risk factors for VTE - frequent long-distance plane travel + CKD; can't rule out other factors He is a very poor candidate for a DOAC due to his morbid obesity (and, to a certain degree, his CKD), therefore, coumadin was started with INR goal 2-3 15mg of coumadin - 7/31 15mg of coumadin - 8/1 15mg of coumadin - 8/2 10mg of coumadin - 8/3 15mg of coumadin - 8/4 7.5 mg on 02/19 for INR 2.8 5 mg on 02/20 for INR 3.6, will need to be held if INR still rising subsequently has follow up with anticoagulation clinic tomorrow. gave Rx for 5 mg tablets (2) Rhinovirus infection: Rhino/enterovirus (+) on [employer] Illness with cold symptoms resolving (3) JOSE ANTONIO (acute kidney injury): JOSE ANTONIO on CKD stage 5 pt's creatinine had been about 3.5/3.6 earlier in the week with baseline highly variable in 3-4.5 range and GFR 11-18, peaked at 5. CT a/p w/o signs of obstruction. u/a at admission with proteinuria (baseline) but otherwise bland attempts to reintroduce his losartan and lasix were met with rising creatinine, these were held Creatinine improved to 4.33 Held losartan for now and replaced with hydralazine. Resumed lasix on discharge. Avoid nitrate for now since he uses sildenafil. He will follow up with Dr. Kitchen (4) Stage 5 chronic kidney disease due to type 2 diabetes mellitus: Patient follows with [facility] outpatient; not currently on dialysis Recently referred for AV fistula and dialysis modality education session Difficult to control hypertension. Wonder if recent persistent cough/wheeze x 2 months is related to intermittent fluid overload. Appears euvolemic at this time. (5) Resistant hypertension: Continue carvedilol, amlodipine, chlorthalidone, lasix, losartan (held), hydralazine 50 mg bid (new) SBPs have improved -- highest readings were >200; now 150-170 range Difficult to control, related to severe renal disease Renin/anthony levels in 2020 were wnl Renal artery dopplers in 2020 were wnl TSH noted to be normal Needs sleep study to r/o LUIS - overnight oximitry only mildly abnormal with desaturation index 6.9 He has already been working on sleep medicine follow up as outpatient (6) Anemia of chronic disease: Chronic; Hgb 9.1 on arrival; likely secondary to CKD Hb since has been stable with Hb 9.6 today Ferritin earlier in January was wnl B12/folate wnl (7) Type 2 diabetes mellitus: Hb A1c 6.8% Continue home regimen (8) Allergic rhinitis: severe [place] very congested on exam and has congestion nearly daily per his has evidence of eosinophilia on CBC w/ diff using nasal flonase and jonathan (9) Eosinophilia: could be all 2nd to severe allergic disease can't exclude eosinophilic asthma but he has no prior h/o asthma strongly consider referral to allergy after discharge (10) Morbid obesity with BMI of 50.0-59.9, adult: BMI 51 Plan Notes For Next Care Provider sounds like sleep medicine follow up already in progress will make outpatient allergy referral for eosinophilia and severe allergy symptoms follow up with marine specialist, resume ARB if tolerated Medication Changes From Visit losartan held hydralazine and coumadin new Admission HPI Per Admitting Provider Jose L is a 48-year-old male with PMH of T2DM, resistant hypertension, CKD stage V secondary to T2DM, and proliferative diabetic retinopathy. He was sent in by pulmonology on 02/13 to rule out blood clot. Patient initially presented to pulmonology for an ongoing nonproductive cough and intermittent wheezing x 2 months. He denies any SOB at rest or with exertion. SOB is not present when he lies flat on his back. Patient reports this nonproductive cough has been intermittent x 2 months and initially went away, but then came back. He recently finished a steroid taper, and has been using his albuterol inhaler as needed for the wheezing, which he reports helps. Patient does not use 7 oxygen at baseline. No CPAP at night. He denies past medical history of DVT/PE. No family history of DVT/PE to his knowledge. No PMH of bleeding disorders, bleeding issues, or GI bleeds. He has never been on a blood thinner before. Patient did not take his regular morning medications today; no recent change in medications. He reports he last took his medicine on Tuesday. He did not take his insulin last night. Patient follows with Dr. Kitchen for nephrology. He denies history of dialysis for his renal function. He reports he is still producing urine. He denies any recent injuries to the chest wall, abdomen, or legs. Patient denies smoking, tobacco use, recent alcohol use within the past week. Patient is hypertensive at 192/111 at time of admission; SpO2 98% on 2L NC. ED course: Heparin IV with bolus Hydralazine 10 mg IV ROS: Patient endorses productive cough x 2 months, intermittent wheezing. Patient denies fever, chills, night-sweats, dizziness, lightheadedness, PATRICIA, chest pressure, chest pain, SOB at rest or with exertion, hemoptysis, pleuritic CP, abdominal pain, N/V/D, changes in urinary/bowel habits, decreased urinary production, redness/swelling in the legs, or numbness/tingling in the arms or legs. Discharge Exam PHYSICAL EXAMINATION Last 24h vital signs reviewed, see documentation in flowsheet General: comfortable appearing, no distress, sitting on edge of bed HEENT: Normocephalic, atraumatic, pupils round and equal, sclerae anicteric, no conjunctival injection, moist mucus membranes Lungs: Normal respiratory effort. Clear to auscultation bilaterally. No RRW Heart: Regular rate and rhythm, no murmurs. No JVD Abdomen: Soft, nontender, nondistended. Bowel sounds present. Extremities: Warm, dry, well-perfused. No extremity edema. Neuro: Alert and oriented x 4, face symmetric, moves 4 extremities well Psych: Normal affect and behavior Updated Medication List Medication Instructions Recorded Confirmed Type Dexcom G6 [employer] Clerk (blood-glucose #1 ea 07/14/22 02/08/24 Rx meter,continuous) amlodipine 10 mg tablet 10 mg PO QAM #90 tabs 03/14/23 02/14/24 Rx Dexcom G6 Transmitter #1 ea 06/21/23 02/08/24 Rx (blood-glucose transmitter) Dexcom G6 Sensor (blood-glucose #3 ea 07/25/23 02/08/24 Rx sensor) carvedilol 25 mg tablet 25 mg PO BID 08/22/23 02/14/24 History insulin degludec 100 unit/mL (3 40 unit subcut QPM 08/22/23 02/14/24 History mL) subcutaneous pen (Tresiba FlexTouch U-100 insulin) chlorthalidone 25 mg tablet 25 mg PO DAILY #90 tabs 09/20/23 02/14/24 Rx losartan 100 mg tablet 50 mg (1/2 x 100 mg) PO QAM #90 12/26/23 02/14/24 Rx tabs albuterol sulfate 90 mcg/actuation 2 puff inhalation Q6H PRN Wheezing 02/14/24 02/14/24 History aerosol inhaler aspirin 81 mg tablet,delayed 81 mg PO DAILY PRN Headache 02/14/24 02/14/24 History release calcitriol 0.5 mcg capsule 0.5 mcg PO 3XWK 02/14/24 02/14/24 History furosemide 40 mg tablet (Lasix) 80 mg PO QAM 02/14/24 02/14/24 History insulin aspart U-100 100 unit/mL 50 unit subcut TIDWMEAL 02/14/24 02/14/24 History (3 mL) subcutaneous pen (Novolog FlexPen U-100 Insulin aspart) sildenafil 50 mg tablet 50 mg PO DAILY PRN Erectile 02/14/24 02/14/24 History Dysfunction hydralazine 25 mg tablet 50 mg (2 x 25 mg) PO BID #120 tabs 02/21/24 Rx warfarin 5 mg tablet 5 mg PO DAILY #14 tabs 02/21/24 Rx Hospital Stay Data Consultations 02/14/24 15:26 ED Decision to Admit Stat Diagnostic Imagining Performed 02/14/24 10:52 CT chest diagnostic wo con Stat 02/14/24 12:11 US leg [US venous doppler LE BI] Stat 02/19/24 08:32 CT abd pelvis wo con Routine Chest CT 02/14/24 10:52 CT chest diagnostic wo con CT DOSE: 927.79 mGy.cm HISTORY: cough; shortness of breath; hypoxia TECHNIQUE: Multiaxial CT images of the chest were performed without contrast. A dose lowering technique was utilized adhering to the principles of ALARA. COMPARISON: None. FINDINGS: Mild diffuse bronchial wall thickening. Otherwise, the central airways are patent. No pneumothorax. No pleural effusions. No focal lung consolidations to suggest a pneumonia. No evidence for pulmonary edema. No acute fractures. The visualized thyroid gland is unremarkable. Limited views of the upper abdomen demonstrate a normal liver, spleen, and adrenal glands. Partially visualized left perinephric edema. Normal esophagus. The heart is normal in size. No pericardial effusion. Mild coronary artery calcifications are noted. Normal caliber thoracic aorta. No mediastinal or hilar lymphadenopathy. Decreased attenuation within the blood pool which could represent underlying anemia. IMPRESSION: 1. Mild diffuse bronchial wall thickening. This can be seen in the setting of a reactive airways disease or bronchitis. 2. No focal lung consolidations to suggest a pneumonia. 3. Mild coronary artery calcifications. 4. Decreased attenuation within the blood pool which could represent underlying anemia. Recommend correlation with laboratory values. ACT 112: Negative or not required by law. Electronically signed by: Monty Oswald M.D. 02/14/2024 12:01 PM Chest X-Ray 02/14/24 10:53 XR chest 1V portable HISTORY: Dyspnea COMPARISON: Chest 12/16/2023. FINDINGS: There are low lung volumes. No pneumothorax. No pleural effusions. The correct silhouette is top normal in size. This remains unchanged. The lungs are clear. No acute fractures. IMPRESSION: No significant change compared to the prior study. No acute process. ACT 112: Negative or not required by law. Electronically signed by: Monty Oswald M.D. 02/14/2024 11:48 AM Pulmonary Perfusion Imaging 02/14/24 12:11 NM pul perfusion HISTORY: 48 years-old Male chronic cough; hypoxia acute hypoxia COMPARISON: Duplex venous Doppler chest CT studies of same day TECHNIQUE: Nuclear medicine perfusion study was obtained following the intravenous demonstration of 5.2 mCi technetium 99 MAA administered via the left upper extremity. FINDINGS: Large segmental perfusion defects in the superior segment left lower lobe. Additional moderate sized right and small left upper lobe perfusion defects. IMPRESSION: Intermediate to high probability for pulmonary embolus. ACT 112: Negative or not required by law. The above report was generated using voice recognition software. It may contain grammatical, syntax or spelling errors. Electronically signed by: Martin Mccarthy M.D. 02/14/2024 3:12 PM Venous Doppler Study 02/14/24 12:11 BILATERAL LOWER EXTREMITY VENOUS DOPPLER HISTORY: Acute pain and swelling of the lower legs r/o DVT COMPARISON STUDY: None. FINDINGS: Limited study secondary to patient body habitus. There is normal compressibility, flow, and augmentation within the bilateral lower extremity deep venous systems. Subcutaneous edema. IMPRESSION: No DVT within the right or left lower extremity. ACT 112: Negative or not required by law. Electronically signed by: Martin Mccarthy M.D. 02/14/2024 2:31 PM Abdomen/Pelvis CT 02/19/24 08:[address] WITHOUT CONTRAST CT DOSE: 1605.89 mGy.cm HISTORY: JOSE ANTONIO/CKD; eval signs of obstruction, stones, etc TECHNIQUE: Multiaxial CT images of the abdomen and pelvis were performed without contrast. A dose lowering technique was utilized adhering to the principles of ALARA. COMPARISON STUDY: None. FINDINGS: A few bibasilar linear densities favor subsegmental atelectasis or scarring. No pneumoperitoneum. No pneumatosis. No acute fractures identified. The unenhanced liver, gallbladder, pancreas, spleen, and adrenal glands unremarkable. There is moderate bilateral perinephric edema. No renal or ureteral stones. No hydronephrosis. Normal caliber abdominal aorta. No retroperitoneal or pelvic lymphadenopathy. No pelvic free fluid. Normal bladder. Suboptimal evaluation for bowel pathology due to the lack of intravenous and oral contrast. However, there is no definite bowel wall thickening or obstruction. Colonic diverticulosis. No evidence for acute diverticulitis. Normal appendix. IMPRESSION: 1. Moderate bilateral perinephric edema. This may be chronic. 2. No renal or ureteral stones. No hydronephrosis. 3. No bowel wall thickening or obstruction. 4. Normal appendix ACT 112: Negative or not required by law. Electronically signed by: Monty Oswald M.D. 02/19/2024 9:48 AM 02/20/24 06:50 02/21/24 07:19 Pending Results Patient Have Any Pending Studies at Discharge: No Discharge Instructions Given to Patient (Per Discharging Provider) You were diagnosed with blood clots in your lungs (pulmonary embolism) Blood thinner is recommended for a minimum of three to six months -discuss how long to ultimately stay on blood thinner with Dr. Salguero She will check your INR (Protime) at your appointment tomorrow and continue adjusting your coumadin (AKA warfarin) dose to keep the INR in the range of 2.0- 3.0 Your INR is a little high today, so take 5 mg today Your creatinine went up to 5, so we changed your blood pressure medicines Follow up as soon as possible with Dr. Kitchen Total Time Total Time Spent Total Time Spent (In Minutes): I personally spent: 40 minutes today on clinical care activities including: reviewing chart notes and vital signs reviewing labs examining and counseling the patient arranging referrals writing orders, prescription, discharge instructions documentation Coding Level of Care Code 49820 INP/OBS DISCH >30 MIN Diagnoses Pulmonary embolism I26.99 Rhinovirus infection B34.8 JOSE ANTONIO (acute kidney injury) N17.9 Stage 5 chronic kidney disease due to type 2 diabetes mellitus E11.22; N18.5 Resistant hypertension I10 Anemia of chronic disease D63.8 Type 2 diabetes mellitus E11.9 Allergic rhinitis J30.9 Eosinophilia D72.10 Morbid obesity with BMI of 50.0-59.9, adult E66.01; Z68.43
== END 2024-02-21 13:17 | disposition home or self-care (01) | DRG 175 ==
LOC: ED 10:47 → SUATTDRO 16:24 → EDINP 16:24 → 2S 18:28